=== PATIENT | female | born 1970 | race Caucasian/White ===

== ENCOUNTER 2025-06-21 19:41 | Emergency (ER) | payer BC, SELFPAY ==
--- OUTSIDE RECORDS SUMMARY | 2025-06-04 14:00 | XMS_ITS | Encounter Summary ---
Author Organization [employer] Address [address] [place] [address] Care Team Providers Care Pick Up Truck Driver Name Role Phone Harmony Bell PA-C Primary Care Provider [phone] Reason for Referral * Procedure/Equipment (Routine) - Incomplete Specialty Diagnoses / Procedures Referred By John scanlon Referred To Contact Diagnoses Encounter for screening mammogram for malignant neoplasm of breast Procedures MM Mammogram Screening Bilat W 3D Fady W CAD Harmony Bell PA-C [address] [place] [address] Phone: tel: fax: Referral ID Status Reason Start Date Expiration Date V isits Requested Visits Authorized [id number] Incomplete 06/04/2025 09/03/2026 1 1 Reason for Visit * Reason Comments Annual Exam Health Maintanence Declined Breast Exam Encounter Details Date Type Department Care Team (Late st Contact Info) Description 06/04/2025 2:00 PM CDT Office Visit [place] [address] [facility] [id number] [place] [phone] Harmony Bell PA-C [address] [place] [address] Annual physical exam (Primary Dx); Elevated coronary artery calcium score; Elevated LDL cholesterol level; Fear of public speaking (HRC); Perimenopause; Lopez; 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); S/P gastric bypass; Vitamin B12 deficiency (HRC); Vitamin D deficiency (HRC); Low ferritin; Encounter for screening mammogram for malignant neoplasm of breast; Anaphylactic reaction to wasp sting, accidental or unintentional, initial encounter; Vaginal dryness, menopausal; Adenomatous polyp of colon, unspecified part of colon; Motion sickness, initial encounter Social History Tobacco Use Types Packs/Day Years Used Date Smoking Tobacco: Never Smokeless Tobacco: Never Alcohol Use Standard Drinks/Week Comments Not Currently 0 (1 standard drink = 0.6 oz pur e alcohol) Limited PHQ-2 Answer Date Recorded PHQ-2 Score 0 06/04/2025 Hunger Vital Sign Answer Date Recorded Within the past 12 months, y ou worried that your food would run out before you got the money to buy more. Never true 06/04/20 25 Within the past 12 months, t he food you bought just didn't last and you didn't have money to get more. Never true 06/04/2025 PRAPARE - Transportation Answer Date Re corded In the past 12 months, has l ack of transportation kept you from medical appointments or from getting medications? No 06/2025 In the past 12 months, has l ack of transportation kept you from meetings, work, or from getting things needed for daily living? No 06/04/2025 Housing Stability Vital Sign Answer Cristi e Recorded In the last 12 months, was t here a time when you were not able to pay the mortgage or rent on time? No 06/04/2025 Number of Times Moved in the Last Year Not on fi le 06/04/2025 At any time in the past 12 m [facility], were you homeless or living in a fpc (including now)? No 06/04/2025 Financial Resource Strain Answer Date R ecorded Is it hard for you to pay fo r the very basics like food, housing, medical care or heating? No 09/28/2023 Food Insecurity Answer Date Recorded Does your food run out before you have the money to buy more? No 09/28/2023 Transportation Needs Answer Date Record ed Does a lack of transportatio n keep you from your medical appointments or from getting your medications? 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 Not on file Not on file Not on file documented as of this encounter Last Filed Vital Signs Vital Sign Reading Time Taken Comments Blood Pressure 108/67 06/04/2025 1:55 PM CDT Pulse 60 06/04/2025 1:55 PM CDT Temperature - - Respiratory Rate - - Oxygen Saturation - - Inhaled Oxygen Concentration - - Weight 72.6 kg (160 lb) 06/04/2025 1:55 PM CDT Height 175.3 cm (5' 9) 06/04/2025 1:55 PM CDT Body Mass Index 23.63 06/04/2025 1:55 PM CDT documented in this encounter Patient Instructions * Patient Instructions* Harmony Bell PA-C - 06/04/2025 2:00 PM CDT Here is plan below: 1) Make sure you continue getting regular exercise, aiming for 30+ min of cardio/strength/yoga at least 4-6 times per week. It is OK to break it up into 10min increments if that is easier for you. Doing a brief, intense HIIT (high intensity interval training) workout for 10min 3-4 times per week isgreat for your overall health. You can get good HIIT workouts on YouTube or apps like the [employer] caitlin. 2) The Vitamins I recommend are: One Pure Encapsulations ONE multivitamin (can get on [employer]) and 4,000IU of Vitamin D3/K2 in the AM and 2g fish oil ([employer] is a good brand) and 420mg (2 tablets) of Qunol brand magnesium glycinate (can get on [employer]) in the PM. 3) Make sure you are drinking 2-3 liters of water per day and eating a healthy diet, focusing on higher proteins/healthy fats and less carbs, small amounts of grass fed, organic (ideally) meats are good and eating a rainbow of fruits and vegetables daily, try to aim for 2 servings of fruit and 6 ofvegetables. If you do grains, whole grains (over whites) are better. Try to avoid fast foods and processed foods and artificial sweeteners and all diet and regular sodas and energy drinks. Green tea and black coffee are fine. Eat more healthy fats also like avocado, eggs, nuts, olive/avocado oil, ned and hemp seeds, pumpkin seeds, etc. Try to get at least 30g of protein with each meal. Eat protein first, then healthy fats and carbslast. Try to not snack after meals or after dinner (drink a lot of water throughout the day) and try to have at least 12 to 14 hours from the time you stop eating dinner until you eat breakfast againthe next morning. 4) Check out the [employer] for good recipe ideas, you can pick different diet types (Low Carb, Paleo, Vegetarian, Keto, etc) and they will give you recipes for that that are usually 30 min or so sogood for busy families. 5) Meditation can also be very helpful for your overall pam, better sleep and decreasing stress. You can YouTube meditations and try to work up to 20min twice daily in AM and PM if you can. Even 5-10min in AM and PM will have great benefits if you don't have 20min. Check out Apps like Calm, Headspace and Smiling Mind for good meditation apps. 6) It is really important to get 8 hours of good sleep per night, go to bed at the same time and get up at the same time each day ideally and make sure to not watch any screens at least 1 hour if not2 hours before bed and if you do use blue light blocking glasses. Having a good wind down regimen before bed is helpful (warm bath, cup of tea, reading a book, meditation, etc). 7) Start the Estrogen vaginal cream three times weekly like I showed you for a month and then go down to twice weekly. Call with any questions or concerns. Thanks, BEV [place]. documented in this encounter Progress Notes * Harmony Bell PA-C - 06/04/2025 2:00 PM CDTAddended by: HARMONY BELL on: 06/18/2025 09:31 AM Modules accepted: Orders * Harmony Bell PA-C - 06/04/2025 2:00 PM CDT Preventive Exam SUBJECTIVE: 55 y.o. y/o patient presents for a routine preventive physical exam. Additional Concerns: She is doing well overall. Will come back fasting for labs. [place] and forgot her Levothyroxine for 4 days so will do labs in a week or two. Struggles with low libido and vaginal dryness, discussed estradiol cream, benefits, how to use it correctly, etc. She would like to give it a try. Has the Mirena IUD in, doesn't feel like she has a lot of hot flashes but is perimenopausal currently. Discussed we can discuss HT in the future if she is interested. Would like refill of epipen for wasp stings. She was worried about statin side effects so stopped the Rosuvastatin 5mg, discussed her concerns and she is willing to do three times per week and see how that goes since she has an elevated Lipo a,Apo B and CAC score of 8. Needs refill of Propranolol 40mg prn public speaking. Would like scop patch for an upcoming cruise in Jul, discussed side effects, etc. Diet: Practices IF, good with protein, lots of water, no soda. Exercise: Pickle ball, some strength training mostly. Supplements: Vitamin D3, Vitamin B12, multivitamin, fish oil, magnesium, CoQ10, aged garlic extract, arterial protect. Lens Silverer History: : LMP: No LMP recorded. (Menstrual status: IUD). Pap hx: Does patient have history of abnormal pap smear? no. Mammogram: Up to date. Prev Med: Colonoscopy: Up to date. Dexa: N/A. OBJECTIVE: BP 108/67 (BP Location: Left Arm, BP Cuff Size: Regular) Pulse 60 Ht 5' 9 (1.753 m) Wt 160 lb (72.6 kg) BMI 23.63 kg/m?? General: Patient alert, in NAD. HEENT: PERRLA. EOMI. Bilateral TM's, external canals normal. Nose: normal mucosa, turbinates, without lesions. Oropharynx normal, normal teeth, gums, tongue, moist mucosa. Skin: Warm, dry, without lesions or rashes noted. Neck: Supple, without thyromegaly, palpable masses or lymphadenopathy. CV: RRR without murmurs, rubs or gallops. Resp: Clear to auscultation b/l without rhonchi, wheezes or rales. Abdomen: Soft, non-tender, without hepatosplenomegaly or palpable masses, b/s x 4. Breasts: Non tender b/l, without masses, nipple discharge, erythema, or skin changes. B/L implants. Pelvic: N/E. Lymphatic: No neck, supraclavicular or axillary lymphadenopathy. Upper extremities: No visible deformities. Lower extremities: No edema, varicosities, or deformity. DP/PT pulses 2/4+ b/l. MS: Normal cervical, thoracic and lumbar spine without visible deformities. Neuro: Normal gait, patellar reflexes 2/4+ b/l, biceps reflexes 2/4+ b/l. Psychiatric: Alert & oriented with normal affect and insight, does not appear depressed or anxious. ASSESSMENT: 1. Annual physical exam 2. Elevated coronary artery calcium score 3. Elevated LDL cholesterol level 4. Fear of public speaking (HRC) 5. Perimenopause 6. Lopez 7. 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 S/P gastric bypass 9. Vitamin B12 deficiency (HRC) 10. Vitamin D deficiency (HRC) 11. Low ferritin 12. Encounter for screening mammogram for malignant neoplasm of breast 13. Anaphylactic reaction to wasp sting, accidental or unintentional, initial encounter 14. Vaginal dryness, menopausal 15. Adenomatous polyp of colon, unspecified part of colon 16. Motion sickness, initial encounter PLAN: Alice was seen today for annual exam and health maintanence declined. Diagnoses and all orders for this visit: Annual physical exam Elevated coronary artery calcium score - rosuvastatin (CRESTOR) 5 MG tablet; 1 tab po at hs three times weekly. Elevated LDL cholesterol level - Apolipoprotein B; Future - Lipid Panel & Direct LDL (if Needed); Future - rosuvastatin (CRESTOR) 5 MG tablet; 1 tab po at hs three times weekly. Fear of public speaking (HRC) - propranolol (INDERAL) 40 MG tablet; 1 tab po 30min before public speaking. Perimenopause - buPROPion (WELLBUTRIN XL) 150 MG 24 hour release tablet; Take 1 Tablet (150 mg) by mouth every morning. 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) - TSH with Free T4 (if TSH Abnormal); Future S/P gastric bypass - Comprehensive Metabolic Panel; Future - Vitamin B12 Only; Future - Vitamin D 25-Hydroxy, Total; Future - Ferritin; Future - Complete Blood Count-No Diff; Future Vitamin B12 deficiency (HRC) - Vitamin B12 Only; Future Vitamin D deficiency (HRC) - Vitamin D 25-Hydroxy, Total; Future Low ferritin - Ferritin; Future - Complete Blood Count-No Diff; Future Encounter for screening mammogram for malignant neoplasm of breast - MM Mammogram Screening Bilat W 3D Fady W CAD; Future Anaphylactic reaction to wasp sting, accidental or unintentional, initial encounter - EPINEPHrine (EPIPEN) 0.3 MG/0.3ML injection; Inject 0.3 mL (0.3 mg) intramuscularly once for 1 dose. Vaginal dryness, menopausal - estradiol (ESTRACE) 0.1 MG/GM vaginal cream; Insert 1 g vaginally two times a week. Adenomatous polyp of colon, unspecified part of colon Motion sickness, initial encounter - scopolamine (TRANSDERM-SCOP) 1.0mg/3 days patch; Apply 1 Patch to skin every 3 days. Here is plan below: 1) Make sure you continue getting regular exercise, aiming for 30+ min of cardio/strength/yoga at least 4-6 times per week. It is OK to break it up into 10min increments if that is easier for you. Doing a brief, intense HIIT (high intensity interval training) workout for 10min 3-4 times per week isgreat for your overall health. You can get good HIIT workouts on YouTube or apps like the [employer]. 2) The Vitamins I recommend are: One Pure Encapsulations ONE multivitamin (can get on [employer]) and 4,000IU of Vitamin D3/K2 in the AM and 2g fish oil ([employer] is a good brand) and 420mg (2 tablets) of Qunol brand magnesium glycinate (can get on [employer]) in the PM. 3) Make sure you are drinking 2-3 liters of water per day and eating a healthy diet, focusing on higher proteins/healthy fats and less carbs, small amounts of grass fed, organic (ideally) meats are good and eating a rainbow of fruits and vegetables daily, try to aim for 2 servings of fruit and 6 ofvegetables. If you do grains, whole grains (over whites) are better. Try to avoid fast foods and processed foods and artificial sweeteners and all diet and regular sodas and energy drinks. Green tea and black coffee are fine. Eat more healthy fats also like avocado, eggs, nuts, olive/avocado oil, ned and hemp seeds, pumpkin seeds, etc. Try to get at least 30g of protein with each meal. Eat protein first, then healthy fats and carbslast. Try to not snack after meals or after dinner (drink a lot of water throughout the day) and try to have at least 12 to 14 hours from the time you stop eating dinner until you eat breakfast againthe next morning. 4) Check out the [employer] for good recipe ideas, you can pick different diet types (Low Carb, Paleo, Vegetarian, Keto, etc) and they will give you recipes for that that are usually 30 min or so sogood for busy families. 5) Meditation can also be very helpful for your overall pam, better sleep and decreasing stress. You can YouTube meditations and try to work up to 20min twice daily in AM and PM if you can. Even 5-10min in AM and PM will have great benefits if you don't have 20min. Check out Apps like Calm, Headspace and Smiling Mind for good meditation apps. 6) It is really important to get 8 hours of good sleep per night, go to bed at the same time and get up at the same time each day ideally and make sure to not watch any screens at least 1 hour if not2 hours before bed and if you do use blue light blocking glasses. Having a good wind down regimen before bed is helpful (warm bath, cup of tea, reading a book, meditation, etc). 7) Start the Estrogen vaginal cream three times weekly like I showed you for a month and then go down to twice weekly. Call with any questions or concerns. Thanks, Harmony Bell PAC. documented in this encounter Plan of Treatment Upcoming Encounters Date Type Department Care Team (Late st Contact Info) Description 07/01/2025 10:30 AM CDT Appointment [facility] [address] [place] [address] 07/02/2025 9:00 AM CDT Appointment [place] [address] Obstetrics/Gynecology [address] [place] [phone] [place] [address] [place] [address] Scheduled Orders Name Type Priority Associated Diagnoses Orde r Schedule MM Mammogram Screening Bilat W 3D Fady W CAD Imaging New Routine Encounter for screening mammogram for malignant neoplasm of breast Expected: 06/04/2025 (Approximate), Expires: 06/04/2026 documented as of this encounter Results * Complete Blood Count-No Diff (06/12/2025 2:17 PM CDT) WBC 5.2 3.5 - 10.5 x10(9)/L 06/12/2025 2:27 PM CDT [facility] RBC 4.01 3.90 - 5.03 x10(12)/L 06/12/2025 2:27 PM CDT [facility] Hemoglobin 12.0 12.0 - 15.5 g/dL 06/12/2025 2:27 PM CDT [facility] HCT 36.9 34.9 - 44.5 % 06/12/2025 2:27 PM CDT [facility] MCV 92.0 80.0 - 100.0 fL 06/12/2025 2:27 PM CDT [facility] MCH 29.9 27.6 - 33.3 pg 06/12/2025 2:27 PM CDT [facility] MCHC 32.5 31.5 - 35.2 g/dL 06/12/2025 2:27 PM CDT [facility] RDW 13.6 11.9 - 15.5 % 06/12/2025 2:27 PM CDT [facility] Platelets 272 150 - 450 x10(9)/L 06/12/2025 2:27 PM CDT [facility] Blood Venipuncture / Unknown 06/12/2025 2:17 PM CDT 06/12/2025 2:17 PM CDT Harmony Bell PA-C LAB_1 Final Result Performing Organization Address [facility] Co de Phone Number [facility] [address] [place] [phone] * Ferritin (06/12/2025 2:17 PM CDT) Ferritin 11 9 - 204 ng/mL 06/12/2025 8:06 PM CDT [facility] Blood Venipuncture / Unknown 06/12/2025 2:17 PM CDT 06/12/2025 2:17 PM CDT Harmony Bell PA-C LAB_1 Final Result Performing Organization Address [facility] Phone Number [facility] [address] [place] [address] * (ABNORMAL) Vitamin D 25-Hydroxy, Total (06/12/2025 2:17 PM CDT) Vitamin D, 25-OH, Total 87(H) 30 - 80 ng/mL 06/12/2025 7:55 PM CDT [facility] Blood Venipuncture / Unknown 06/12/2025 2:17 PM CDT 06/12/2025 2:17 PM CDT Narrative [facility] - 06/12/2025 7:55 PM CDT Expected values Deficiency: <20 ng/mL Insufficiency: 20-29 ng/mL Optimum: 30-80 ng/mL Possible toxicity: >80 ng/mL Harmony Bell PA-C LAB_1 Final Result Performing Organization Address [facility] Co de Phone Number [facility] [address] * (ABNORMAL) Vitamin B12 Only (06/12/2025 2:17 PM CDT) Pathologist [facility] Vitamin B12 >2,000(H) 213 - 816 pg/mL 06/12/2025 8:13 PM CDT [facility] Blood Venipuncture / Unknown 06/12/2025 2:17 PM CDT 06/12/2025 2:17 PM CDT Harmony Bell PA-C LAB_1 Final Result Performing Organization Address [facility] de Phone Number [facility] [address] [place] [address] * TSH with Free T4 (if TSH Abnormal) (06/12/2025 2:17 PM CDT) [facility] TSH, Reflex 2.70 0.30 - 4.50 uIU/mL 06/12/2025 8:05 PM CDT [facility] Blood Venipuncture / Unknown 06/12/2025 2:17 PM CDT 06/12/2025 2:17 PM CDT Harmony Bell PA-C LAB_1 Final Result Performing Organization Address [facility] Phone Number [facility] [address] [place] [address] * Comprehensive Metabolic Panel (06/12/2025 2:17 PM CDT) [facility] Sodium 138 136 - 145 mmol/L 06/12/2025 7:01 PM [facility] Potassium 4.0 3.5 - 5.1 mmol/L 06/12/2025 7:01 PM [facility] Chloride 103 98 - 109 mmol/L 06/12/2025 7:01 PM [facility] CO2 20 20 - 29 mmol/L 06/12/2025 7:01 PM [facility] Anion Gap 15 6 - 16 mmol/L 06/12/2025 7:01 PM [facility] Calcium 9.2 8.4 - 10.4 mg/dL 06/12/2025 7:01 PM [facility] BUN 14 7 - 26 mg/dL 06/12/2025 7:01 PM [facility] Creatinine 0.85 0.55 - 1.02 mg/dL 06/12/2025 7:01 PM [facility] Alkaline Phosphatase 60 40 - 150 U/L 06/12/2025 7:01 PM [facility] AST (SGOT) 31 16 - 46 U/L 06/12/2025 7:01 PM [facility] ALT (SGPT) 20 0 - 55 U/L 06/12/2025 7:01 PM [facility] Bilirubin, Total 1.1 0.2 - 1.2 mg/dL 06/12/2025 7:01 PM [facility] Protein, Total 7.5 6.4 - 8.3 g/dL 06/12/2025 7:01 PM [facility] Albumin 4.2 3.5 - 5.0 g/dL 06/12/2025 7:01 PM [facility] Glucose 85 70 - 100 mg/dL 06/12/2025 7:01 PM [facility] Comment:The given reference range is for the fasting state. Non-fasting reference range for glucose is 70 - 180 mg/dL. GFR, Estimated >60 >60 mL/min/1.7 3m2 06/12/2025 7:01 PM [facility] Hours Fasting 12.0 8 - 12 Hours 06/12/2025 7:01 PM [facility] Blood Venipuncture / Unknown 06/12/2025 2:17 PM CDT 06/12/2025 2:17 PM CDT us Harmony Bell PA-C LAB_1 Final Result [facility] [address] [place] [address], [facility] [address] [place] [address] * (ABNORMAL) Lipid Panel & Direct LDL (if Needed) (06/12/2025 2:17 PM CDT) [facility] Signature Cholesterol 232(H) 0 - 199 mg/dL 06/12/2025 7:01 PM [facility] Triglyceride 48 <=149 mg/dL 06/12/2025 7:01 PM [facility] HDL Cholesterol 106 >=40 mg/dL 7:01 PM [facility] LDL, Calculated 116 <130 mg/dL 7:01 PM [facility] Non HDL Chol, Calculated 126 <=159 mg/dL 06/12/2025 7:01 PM [facility] Cholesterol/HDL Ratio 2.2 <=5.0 06/12/2025 7:01 PM T [facility] Hours Fasting 12.0 8 - 12 Hours 06/12/2025 7:01 PM T [facility] Blood Venipuncture / Unknown 06/12/2025 2:17 PM CDT 06/12/2025 2:17 PM CDT Harmony Bell PA-C LAB_1 Final Result Performing Organization Address City/State/[facility] Co de Phone Number [facility] [address] [place] [address] [address] [place] [address] * Apolipoprotein B (06/12/2025 2:17 PM CDT) [facility] Apolipoprotein B-100 94 60 - 117 mg/dL 06/14/2025 8:51 PM CDT [employer] Comment: REFERENCE INTERVAL: Apolipoprotein B A desirable fasting serum Apo B concentration for the prevention of atherosclerotic cardiovascular disease in adults is less than 90 mg/dL. A fasting serum Apo B concentration of 130 mg/dL or greater corresponds to a LDL cholesterol concentration greater than 160 mg/dL and constitutes a risk enhancing factor for atherosclerotic cardiovascular disease in adults. Performed By: [employer] [address] [place] [id number] Advanced Practice Nurse Psychotherapist: Sincere Murray MD, PhD CLIA Number: [id number] Blood Venipuncture / Unknown 06/12/2025 2:17 PM CDT 06/12/2025 2:17 PM CDT Harmony Bell PA-C LAB_1 Final Result [facility] [address] [place], [place] [address] [place] [address] documented in this encounter Visit Diagnoses Diagnosis Annual physical exam- Primary Routine general medical examination at a health care facility Elevated coronary artery calcium score Elevated LDL cholesterol level Pure hypercholesterolemia Fear of public speaking (HRC) Social phobia Perimenopause Symptomatic menopausal or female climacteric states 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) S/P gastric bypass Bariatric surgery status Vitamin B12 deficiency (HRC) Other B-complex deficiencies Vitamin D deficiency (HRC) Unspecified vitamin D deficiency Low ferritin Other nonspecific findings on examination of blood Encounter for screening mammogram for malignant neoplasm of breast Other screening mammogram Anaphylactic reaction to wasp sting, accidental or unintentional, initial encounter Vaginal dryness, menopausal Symptomatic menopausal or female climacteric states Adenomatous polyp of colon, unspecified part of colon Motion sickness, initial encounter documented in this encounter Care Teams Pick Up Truck Driver Relationship Specialty Start Date End Date Harmony Bell PA-C [address] [place] [address] PCP - General 09/15/15 documented as of this encounter
--- OUTSIDE RECORDS SUMMARY | 2025-06-06 09:00 | XMS_ITS | Encounter Summary ---
Author Organization [employer] Address [address], [place] [address] Care Team Providers Care Customer Service Representative Teacher Name Role Phone Harmony Bell PA-C Primary Care Provider [phone] Reason for Visit * Reason Comments QUESTIONS, GENERAL Entered automaticall y based on patient selection in [employer]. Encounter Details Date Type Department Care Team (Late st Contact Info) Description 06/06/2025 9:00 AM CDT E-Visit [place] [address] Family Medicine [address] [place] [address] Harmony Bell PA-C [address] [place] [address] Chief Comp: QUESTIONS, GENERAL Social History Tobacco Use Types Packs/Day Years [...] any time in the past 12 m [facility], were you homeless or living in a senior living (including now)? No 06/04/2025 Financial Resource Strain [...] on file documented as of this encounter Plan of Treatment Upcoming Encounters Date Type Department Care Team (Late st Contact Info) Description 07/01/2025 10:30 AM CDT Appointment [facility] [address] [place] [address] 07/02/2025 9:00 AM CDT Appointment [place] [address] Obstetrics/Gynecology [address] [place] [phone] [place] [address] [place] [address] documented as of this encounter Visit Diagnoses Not on filedocumented in this encounter Care Teams Customer Service Representative Teacher Relationship Specialty Start Date End Date Harmony Bell PA-C [address] [place] [address] PCP - General 09/15/15 documented as of this encounter
--- OUTSIDE RECORDS SUMMARY | 2025-06-12 14:30 | XMS_ITS | Encounter Summary ---
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 No 06/04/2025 Financial Resource Strain [...] Info) Description 07/01/2025 10:30 AM CDT Appointment [facility] [address] [place] [address] 07/02/2025 9:00 AM CDT Appointment [facility] [address] Obstetrics/Gynecology [address] [place] [address] [place] [address] [place] [address] documented as of this encounter Procedures Procedure Name Priority Date/Time Associated Diagnosis Comments APOLIPOPROTEIN B Routine 06/12/2025 2:17 PM CDT Elevated LDL cholesterol level LIPID PANEL & DIRECT LDL (IF NEEDED) Routine 06/12/2025 2:17 PM CDT Elevated LDL cholesterol level VITAMIN D 25-HYDROXY, TOTAL Routine 06/12/2025 2:17 PM CDT S/P gastric bypass Vitamin D deficiency (HRC) COMPREHENSIVE METABOLIC PANEL Routine 06/12/2025 2:17 PM CDT S/P gastric bypass COMPLETE BLOOD COUNT-NO DIFF Routine 06/12/2025 2:17 PM CDT S/P gastric bypass Low ferritin FERRITIN Routine 06/12/2025 2:17 PM CDT S/P gastric bypass Low ferritin TSH, SENSITIVE (WITH REFLEX) Routine 06/12/2025 2:17 PM CDT 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) VITAMIN B12 ONLY Routine 06/12/2025 2:17 PM CDT S/P gastric bypass Vitamin B12 deficiency (HRC) documented in this encounter Results * Complete Blood Count-No Diff (06/12/2025 2:17 PM CDT) [facility] WBC 5.2 3.5 - 10.5 x10(9)/L 06/12/2025 2:27 PM CDT [facility] RBC 4.01 3.90 - 5.03 x10(12)/L 06/12/2025 2:27 PM CDT [facility] Hemoglobin 12.0 12.0 - 15.5 g/dL 06/12/2025 2:27 PM CDT [facility] HCT 36.9 34.9 - 44.5 % 06/12/2025 2:27 PM CDT [facility] MCV 92.0 80.0 - 100.0 fL 06/12/2025 2:27 PM CDT [facility] MCH 29.9 27.6 - 33.3 pg 06/12/2025 2:27 PM CDT [facility] MCHC 32.5 31.5 - 35.2 g/dL 06/12/2025 2:27 PM CDT [facility] RDW 13.6 11.9 - 15.5 % 06/12/2025 2:27 PM CDT [facility] Platelets 272 150 - 450 x10(9)/L 06/12/2025 2:27 PM CDT [facility] Blood Venipuncture / Unknown 06/12/2025 2:17 PM CDT 06/12/2025 2:17 PM CDT Harmony Bell PA-C LAB_1 Final Result Performing Organization Address [facility]/ZIP Co de Phone Number [facility] [address] [place] [address] * Ferritin (06/12/2025 2:17 PM CDT) Ferritin 11 9 - 204 ng/mL 06/12/2025 8:06 PM CDT [facility] Blood Venipuncture / Unknown 06/12/2025 2:17 PM CDT 06/12/2025 2:17 PM CDT Harmony Bell PA-C LAB_1 Final Result Performing Organization Address [facility] de Phone Number [facility] Delivered[address] [employer] * (ABNORMAL) Vitamin D 25-Hydroxy, Total (06/12/2025 2:17 PM CDT) Vitamin D, 25-OH, Total 87(H) 30 - 80 ng/mL 06/12/2025 7:55 PM CDT [facility] Blood Venipuncture / Unknown 06/12/2025 2:17 PM CDT 06/12/2025 2:17 PM CDT Narrative [facility] - 06/12/2025 7:55 PM CDT Expected values Deficiency: <20 ng/mL Insufficiency: 20-29 ng/mL Optimum: 30-80 ng/mL Possible toxicity: >80 ng/mL Harmony Bell PA-C LAB_1 Final Result Performing Organization Address City/[facility] Co de Phone Number [facility] Delivered[address] * (ABNORMAL) Vitamin B12 Only (06/12/2025 2:17 PM CDT) Pathologist [facility] Vitamin B12 >2,000(H) 213 - 816 pg/mL 06/12/2025 8:13 PM CDT [facility] Blood Venipuncture / Unknown 06/12/2025 2:17 PM CDT 06/12/2025 2:17 PM CDT Harmony Bell PA-C LAB_1 Final Result Performing Organization Address City/[facility]/ZIP Co de Phone Number [facility] [address] [place] [address] * TSH with Free T4 (if TSH Abnormal) (06/12/2025 2:17 PM CDT) Pathologist [facility] TSH, Reflex 2.70 0.30 - 4.50 uIU/mL 06/12/2025 8:05 PM CDT [facility] Blood Venipuncture / Unknown 06/12/2025 2:17 PM CDT 06/12/2025 2:17 PM CDT Harmony Bell PA-C LAB_1 Final Result Performing Organization Address City/[facility]/ZIP Co de Phone Number [facility] [address] [place] [address] * Comprehensive Metabolic Panel (06/12/2025 2:17 PM CDT) [facility] Sodium 138 136 - 145 mmol/L 06/12/2025 7:01 PM CDT [facility] Potassium 4.0 3.5 - 5.1 mmol/L 06/12/2025 7:01 PM CDT [facility] Chloride 103 98 - 109 mmol/L 06/12/2025 7:01 PM CDT [facility] CO2 20 20 - 29 mmol/L 06/12/2025 7:01 PM CDT [facility] Anion Gap 15 6 - 16 mmol/L 06/12/2025 7:01 PM CDT [facility] Calcium 9.2 8.4 - 10.4 mg/dL 06/12/2025 7:01 PM [facility] BUN 14 7 - 26 mg/dL 06/12/2025 7:01 PM [facility] Creatinine 0.85 0.55 - 1.02 mg/dL 06/12/2025 7:01 PM [facility] Alkaline Phosphatase 60 40 - 150 U/L 06/12/2025 7:01 PM [facility] AST (SGOT) 31 16 - 46 U/L 06/12/2025 7:01 PM [facility] ALT (SGPT) 20 0 - 55 U/L 06/12/2025 7:01 PM [facility] Bilirubin, Total 1.1 0.2 - 1.2 mg/dL 06/12/2025 7:01 PM [facility] Protein, Total 7.5 6.4 - 8.3 g/dL 06/12/2025 7:01 PM [facility] Albumin 4.2 3.5 - 5.0 g/dL 06/12/2025 7:01 PM [facility] Glucose 85 70 - 100 mg/dL 06/12/2025 7:01 PM [facility] Comment:The given reference range is for the fasting state. Non-fasting reference range for glucose is 70 - 180 mg/dL. GFR, Estimated >60 >60 mL/min/1.7 3m2 06/12/2025 7:01 PM [facility] Hours Fasting 12.0 8 - 12 Hours 06/12/2025 7:01 PM [facility] Blood Venipuncture / Unknown 06/12/2025 2:17 PM CDT 06/12/2025 2:17 PM CDT us Harmony Bell PA-C LAB_1 Final Result [facility] [address] [place] [address], [facility]3] LAB [address] [place] [address] * (ABNORMAL) Lipid Panel & Direct LDL (if Needed) (06/12/2025 2:17 PM CDT) [facility] Cholesterol 232(H) 0 - 199 mg/dL 06/12/2025 7:01 PM CDT [facility] Triglyceride 48 <=149 mg/dL 06/12/2025 7:01 PM T [facility] HDL Cholesterol 106 >=40 mg/dL 7:01 PM T [facility] LDL, Calculated 116 <130 mg/dL 7:01 PM T [facility] Non HDL Chol, Calculated 126 <=159 mg/dL 06/12/2025 7:01 PM T [facility] Cholesterol/HDL Ratio 2.2 <=5.0 06/12/2025 7:01 PM T [facility] Hours Fasting 12.0 8 - 12 Hours 06/12/2025 7:01 PM T [facility] Blood Venipuncture / Unknown 06/12/2025 2:17 PM CDT 06/12/2025 2:17 PM CDT Harmony Bell PA-C LAB_1 Final Result [facility] [address] [place] [address] [address] [place] [address] * Apolipoprotein B (06/12/2025 2:17 PM CDT) [facility] Apolipoprotein B-100 94 60 - 117 mg/dL 06/14/2025 8:51 PM CDT [facility] Comment: REFERENCE INTERVAL: Apolipoprotein B A desirable fasting serum Apo B concentration for the prevention of atherosclerotic cardiovascular disease in adults is less than 90 mg/dL. A fasting serum Apo B concentration of 130 mg/dL or greater corresponds to a LDL cholesterol concentration greater than 160 mg/dL and constitutes a risk enhancing factor for atherosclerotic cardiovascular disease in adults. 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
--- OUTSIDE RECORDS SUMMARY | 2025-06-21 11:00 | XMS_ITS | Encounter Summary ---
Author Organization [facility] Address [address], [place] [address] Care Team Providers Care Carpet Finishing Supervisor Name Role Phone Harmony Bell PA-C Primary Care Provider [phone] Reason for Referral * Consult/Transfer Care (Routine) - New Request Specialty Diagnoses / Procedures Referred By John scanlon Referred To Contact Diagnoses IUD (intrauterine device) in place Harmony Bell PA-C [address] [place] [address] Phone: tel: fax: Referral ID Status Reason Start Date Expiration Date V isits Requested Visits Authorized [id number] New Request 06/21/2025 09/20/2026 1 1 Scheduling Instructions Your clinician has recommended an appointment with [facility]. You can quickly schedule your appointment by signing in to your online account at [email or web address] or through the text message you may have received. You can also make an appointment by calling [phone]. We also suggest you call your health insurance provider about your benefits and coverage for this appointment. Question Answer Appointment Urgency? Non-Urgent Reason for Visit? Control Comments Removal, reinsertion of Mirena IUD. Reason for Visit * Reason Onset Date Comments Video Visit 06/21/2025 MENOPAUSE Encounter Details Date Type Department Care Team (Latest Contact Info) Description 06/21/2025 11:00 AM CDT Telemedicine [place] [address] Family Medicine [address] [place] [address] Harmony Bell PA-C [address] [place] [address] Perimenopausal symptoms (Primary Dx); Night sweats; Vaginal dryness, menopausal; IUD (intrauterine device) in place; Lopez; 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); Palpitations Social History Tobacco Use Types Packs/Day Years [...] any time in the past 12 m [facility], were you homeless or living in a group home (including now)? No 06/04/2025 Financial Resource Strain [...] on file documented as of this encounter Patient Instructions * Patient Instructions* Harmony Bell PA-C - 06/21/2025 11:00 AM CDT Here is plan below: 1) Call to schedule a removal/reinsertion of the Mirena IUD with Water Pump Assembler. 2) Start the Estradiol 0.025mg patch twice weekly like we discussed to help with the perimenopause symptoms. 3) Don't do any rigorous exercise until you get your iron infusion done and are feeling better. 4) In the meantime start 2 tsp of Floravital iron liquid twice daily and that can help. 5) Message me when you get your iron infusion and I'll put in the recheck labs for a month after that. 6) If you get another episode with chest pains, palpitations, etc again go to the ED for further evaluation. 7) Give me an update on how you are feeling on the Estradiol patch in 1-2 months. Call with any questions or concerns in the meantime. Thanks, Harmony Bell, PAC. documented in this encounter Progress Notes * Harmony Bell PA-C - 06/21/2025 11:00 AM CDT Subjective: Today's visit with Alice was conducted via telehealth (video) as it is the patient's preference andit is appropriate for the treatment being provided Alice scheduled a video visit to discuss hormones. She has the Mirena IUD in and wanted to discuss adding estradiol. She has a lot of fatigue, mood swings, low libido, night sweats, little bit of joint pain in her hands, mild brain fog at times. She also has low iron and will be getting infusion soon so that should help. She also had a couple episodes now this week where she felt really tired andhad her heart flutter and saw stars and had to sit down so she will take it easy until she can get the iron infusion. Discussed estrogen could help the palpitations also. The second episode she had achest pain to her back and her hand started tingling at pickle ball this AM and her hands are stilltingling and she still feels a dull ache in her chest. Discussed she could go to our UC to get an EKG now since she still feels a little off, she wanted to see how it goes today but if symptoms worsen will go in. We discussed trying Floravital iron to help in the meantime while she waits to get in for the iron infusion. Discussed not doing any pickle ball or rigorous exercise until she gets the iron infusion. Regarding the hormones she has had the Mirena IUD for 8 years, was put in to help menorrhagia, she is due to have it changed and so I referred her to OB and she will schedule a removal reinsertion since it works well for her and we need to have her uterus protected when starting estrogen. She has done some research also about estrogen so we discussed benefits, risks, side effects and she would like to try it, we'll start with the Estradiol 0.025mg patch twice weekly. She needs refill of the Levothyroxine also today and she never got the estrogen vaginal cream so I'll send that over again also for her to try. No other concerns today. Objective: There were no vitals taken for this visit. Pleasant, NAD, normal affect. Assessment/Plan: Perimenopausal symptoms - estradiol (VIVELLEDOT) 0.025 MG/24HR semiweekly patch; Apply 1 Patch to skin two times a week. Night sweats - estradiol (VIVELLEDOT) 0.025 MG/24HR semiweekly patch; Apply 1 Patch to skin two times a week. Vaginal dryness, menopausal - estradiol (VIVELLEDOT) 0.025 MG/24HR semiweekly patch; Apply 1 Patch to skin two times a week. - estradiol (ESTRACE) 0.1 MG/GM vaginal cream; Insert 1 g vaginally two times a week. IUD (intrauterine device) in place - Ob-Motion Picture Critic Consult - Adult/Peds Lopez - estradiol (VIVELLEDOT) 0.025 MG/24HR semiweekly patch; Apply 1 Patch to skin two times a week. 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) - levothyroxine (SYNTHROID) 175 MCG tablet; TAKE ONE TABLET BY MOUTH ON MON TO SAT AND 2 TABLETS ONSUNDAY Palpitations Here is plan below: 1) Call to schedule a removal/reinsertion of the Mirena IUD with Water Pump Assembler. 2) Start the Estradiol 0.025mg patch twice weekly like we discussed to help with the perimenopause symptoms. 3) Don't do any rigorous exercise until you get your iron infusion done and are feeling better. 4) In the meantime start 2 tsp of Floravital iron liquid twice daily and that can help. 5) Message me when you get your iron infusion and I'll put in the recheck labs for a month after that. 6) If you get another episode with chest pains, palpitations, etc again go to the ED for further evaluation. 7) Give me an update on how you are feeling on the Estradiol patch in 1-2 months. Call with any questions or concerns in the meantime. Thanks, BEV [place]. Harmony Bell PA-C documented in this encounter Plan of Treatment Upcoming Encounters Date Type Department Care Team (Late st Contact Info) Description 07/01/2025 10:30 AM CDT Appointment [facility] [address] [place] [address] 07/02/2025 9:00 AM CDT Appointment [place] [address] Obstetrics/Gynecology [address] [place] [address] [place] [address] [place] [address] Scheduled Referrals Name Type Priority Associated Diagnoses Orde r Schedule Ob-Motion Picture Critic Consult - Adult/Peds Referral Routine IUD (intrauterine device) in place Ordered: 06/21/2025 documented as of this encounter Visit Diagnoses Diagnosis Perimenopausal symptoms- Primary Symptomatic menopausal or female climacteric states Night sweats Generalized hyperhidrosis Vaginal dryness, menopausal Symptomatic menopausal or female climacteric states IUD (intrauterine device) in place Presence of intrauterine contraceptive device Lopez 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) Palpitations documented in this encounter Care Teams Carpet Finishing Supervisor Relationship Specialty Start Date End Date Harmony Bell PA-C [address] [place] [address] PCP - General 09/15/15 documented as of this encounter
--- OUTSIDE RECORDS SUMMARY | 2025-06-21 19:44 | XMS_ITS | Clinical Summary ---
Author Organization [facility] Technology Address [address], [place] [address] Care Team Providers Care Elevator Adjuster Name Role Phone Harmony Bell PA-C Primary Care Provider [phone] Source Comments You are receiving this document as you are listed as the primary care provider,follow-up provider, or the patient has been referred to you for consultation.This is in compliance with the Medicare andMedicaid EHR Incentive Program,which states Providers who transition their patient to another setting of careor provider of care or refers their patient to another provider of care shouldprovide summary care record for each transition of care or referral. Prolify Allergies Active Allergy Reactions Criticality Noted Date Comments Adhesive Rash 08/19/2020 Bacitracin 02/13/2003 PN: LW Reaction: Rash, Generalized Nsaids Other, see comments 10/22/2009 Pt had gastric bypass surgery, should not take NSAIDS. Wasp Venom Other, see comments 06/04/2025 Got stung by several wasps and her throat swelled and she got huge welts. Medications levonorgestrel (MIRENA) 20 MCG/24HR IUD 1 Each by Intrauterine route once. Active Campti-3 Fatty Acids (FISH OIL) 1000 MG capsule Take by mouth. Activ e MULTIPLE VITAMIN OR Active Continuous Blood Gluc [employer] Manager (FREESTYLE PIERRE 14 DAY READER) DEVIIndication s:Hypoglycemia (HRC),S/P gastric bypass Use with sensor. 1 Each 11 022 Active Continuous Blood Gluc [employer] Manager (DEXCOM G6 PASSENGER INTERLINE CLERK) DEVIIndication s:Hypoglycemia (HRC) Inject 1 Device subcutaneously as needed. For use with continuous glucose monitoring system. 1 Each 022 Active Continuous Blood Gluc Transmit (DEXCOM G6 TRANSMITTER) MISCIndication s:Hypoglycemia (HRC) Inject 1 Each subcutaneously as needed. Use as directed for continuous glucose monitoring. Change transmitter every 3 months. 1 Each 4 022 Active Continuous Blood Gluc Sensor (FREESTYLE PIERRE 2 SENSOR) MISCIndication s:Hypoglycemia (HRC) Apply one sensor to back of arm q2 weeks. 2 Each 6 023 Active rosuvastatin (CRESTOR) 5 MG tabletIndicati ons:Elevated coronary artery calcium score,Elevated LDL cholesterol level 1 tab po at hs three times weekly. 36 Tablet 3 025 Active propranolol (INDERAL) 40 MG tabletIndicati ons:Fear of public speaking (HRC) 1 tab po 30min before public speaking. 30 Tablet 3 025 Active buPROPion (WELLBUTRIN XL) 150 MG 24 hour release tabletIndicati ons:Perimenopa use Take 1 Tablet (150 mg) by mouth every morning. 90 Tablet 3 025 Active scopolamine (TRANSDERM-SCO P) 1.0mg/3 days patchIndicatio ns:Motion sickness, initial encounter Apply 1 Patch to skin every 3 days. 4 Each 025 Active estradiol (VIVELLEDOT) 0.025 MG/24HR semiweekly patchIndicatio ns:Night sweats,Vaginal dryness, menopausal,Per imenopausal symptoms,Lopez Apply 1 Patch to skin two times a week. 24 Each 025 Active estradiol (ESTRACE) 0.1 MG/GM vaginal creamIndicatio ns:Vaginal dryness, menopausal Insert 1 g vaginally two times a week. 42.5 g 3 025 Active levothyroxine (SYNTHROID) 175 MCG tabletIndicati ons:Hypothyroi dism due to John's thyroiditis (HRC) TAKE ONE TABLET BY MOUTH ON TUE TO TUE AND 2 TABLETS ON TUESDAY 102 Tablet 3 025 Active EPINEPHrine (EPIPEN) 0.3 MG/0.3ML injection Inject 0.3 mg intramuscularly. 014 2024 Discontinued(* Med change OR same med OR reorder, new dose/direction s) propranolol (INDERAL) 40 MG tabletIndicati ons:Fear of public speaking ([facility]) 1 tab po 30min before public speaking. 30 Tablet 3 022 2024 Discontinued(* Med change OR same med OR reorder, new dose/direction s) tirzepatide-we ight management (ZEPBOUND) 15 MG/0.5ML pen injectionIndic ations:S/P gastric bypass,Overwei ght (BMI 25.0-29.9) ([facility]) Inject 0.5 mL (15 mg) subcutaneously once every week. Do not start before August 06, 2024. 2 mL 11 024 2024 Discontinued rosuvastatin (CRESTOR) 5 MG tabletIndicati ons:Elevated coronary artery calcium score,Elevated LDL cholesterol level TAKE ONE TABLET BY MOUTH NIGHTLY AT BEDTIME 90 Tablet 025 2024 Discontinued(* Med change OR same med OR reorder, new dose/direction s) buPROPion (WELLBUTRIN XL) 150 MG 24 hour release tabletIndicati ons:Perimenopa use TAKE ONE TABLET BY MOUTH IN THE MORNING 60 Tablet 025 2024 Discontinued(* Med change OR same med OR reorder, new dose/direction s) levothyroxine (SYNTHROID) 175 MCG tabletIndicati ons:Hypothyroi dism due to John's thyroiditis ([facility]) TAKE ONE TABLET BY MOUTH ON Tue AND 2 TABLETS ON TUESDAY 60 Tablet 025 2024 Discontinued(* Med change OR same med OR reorder, new dose/direction s) EPINEPHrine (EPIPEN) 0.3 MG/0.3ML injectionIndic ations:Anaphyl actic reaction to wasp sting, accidental or unintentional, initial encounter Inject 0.3 mL (0.3 mg) intramuscularly once for 1 dose. 2 Each 1 025 2024 estradiol (ESTRACE) 0.1 MG/GM vaginal creamIndicatio ns:Vaginal dryness, menopausal Insert 1 g vaginally two times a week. 42.5 g 3 025 2024 Discontinued(* Med change OR same med OR reorder, new dose/direction s) Active Problems Problem Noted Date Diagnosed Date Perimenopausal symptoms 06/21/2025 Low ferritin 06/18/2025 Vaginal dryness, menopausal 06/04/2025 Anaphylactic reaction to wasp sting 06/04/2025 Adenomatous polyp of colon 04/13/2021 Fear of public speaking 02/04/2017 Primary osteoarthritis of both knees 12/13/2016 S/P gastric bypass 02/02/2016 PMS (premenstrual syndrome) 02/02/2016 History of dysplastic nevus 11/16/2012 Hypothyroidism 05/04/2003 Overview (07/20/2017): Hypothyroidism Acquired Resolved Problems Problem Noted Date Diagnosed Date Resolved Date Abnormal uterine bleeding (AUB) 02/07/2017 01/28/2021 Chondromalacia 12/13/2016 06/15/2018 Knee pain 12/13/2016 06/15/2018 Obesity 05/04/2003 02/02/2016 Encounters Date Type Department Care Team Description 06/21/2025 11:00 AM CDT Telemedicine [place] [address] [address] [place] [phone] Harmony Bell PA-C Perimenopausal symptoms (Primary Dx); Night sweats; Vaginal dryness, menopausal; IUD (intrauterine device) in place; Lopez; 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); Palpitations 06/19/2025 Telephone [place] [address] [address] [place] [phone] Harmony Bell PA-C Orders Needed 06/14/2025 Results Follow-Up [address] Medicine [address] [place] [phone] Harmony Bell PA-C 06/12/2025 2:30 PM CDT Lab Visit [address] [phone] Elevated LDL cholesterol level; S/P gastric bypass; 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); Vitamin B12 deficiency (HRC); Vitamin D deficiency (HRC); Low ferritin 06/06/2025 9:00 AM CDT E-Visit [address] [phone] Harmony Bell PA-C Chief Comp: QUESTIONS, GENERAL 06/04/2025 2:00 PM CDT Office Visit [address] [phone] Harmony Bell PA-C Annual physical exam (Primary Dx); Elevated coronary [...] part of colon; Motion sickness, initial encounter 04/25/[address] [phone] Harmony Bell PA-C Refill (buPROPion (WELLBUTRIN XL) 150 MG 24 hour release tablet [Pharmacy Med Name: buPROPion HCl ER (XL) Oral Tablet Extended Release 24 Hour 150 MG]; levothyroxine (SYNTHROID) 175 MCG tablet [Pharmacy Med Name: Levothyroxine Sodium Oral Tablet 175 MCG]) from Last 3 Months Immunizations Immunization Administration Dates Next Due Flu Vac (3+ yrs) 08/14/2013,08/09/2012 Fluzone Qiv Multidose Vial 0.25 (6-35 Mos) 09/07,09/02/2015 HepA Adult (19+ yrs) 01/17/2013,10/30/2007 Influenza (Flucelvax), Preserv Free QIV 09/28/20 23 Influenza IIV4 (Quadrivalent) 0.5mL (71510) 09/29,10/12/2016 Influenza LAIV (Nasal, 2-49 yrs) 09/03/2014 Pfizer COVID-19 12+ 09/28/2023 Pfizer Monovalent 12+ 06/03/2022 Pfizer Monovalent 12+ Purple Top 10/30/2021,05/0 02/2021,03/10/2021 TDAP (BOOSTRIX) 01/17/2013 Td 01/07/2000 Tdap 06/03/2022 Zoster RZV (Shingrix) 09/28/2023,06/03/2022 Family History Medical History Relation Name Comments Cancer Father Dada Esophageal, age 60. Other Father Dada Amloydosis Mother Adopted Kidney/Bladder Disease Mother Adopted No Known Family HIstory Problems Mother Adopted No Known Problems Daughter Leonie Diabetes Paternal Grandfather Ures Myocardial Infarction Paternal Grandfather Ures In his 60s Diabetes Paternal Grandmother Margarite Heart Disease Paternal Grandmother Margarite CHF Diabetes Paternal Uncle Arun Cancer, Melanoma Sister Vickie Other Sister Vickie Did have pre-di abetes, had gastric bypass and is good now. No Known Problems Son Ildefonso Cancer, Breast Negative Family History Cancer, Ovary Negative Family History Relation Name Status Comments Father Dada Mother Adopted Alive Daughter Leonie Alive Maternal Grandfather Unknown Alive Maternal Grandmother Unknown Alive Paternal Grandfather Ures Paternal Grandmother Margarite Paternal Uncle Arun Alive Sister Vickie Alive Son Ildefonso Alive Social History Tobacco Use Types Packs/Day Years [...] any time in the past 12 [facility], were you homeless or living in a chcf (including now)? No 06/04/2025 Financial Resource Strain [...] file Not on file Not on file Last Filed Vital Signs Vital Sign Reading Time Taken Comments Blood Pressure 108/67 06/04/2025 1:55 PM CDT Pulse 60 06/04/2025 1:55 PM CDT Temperature 36.6 C (97.8 F) 07/11/2023 2:12 PM CDT Respiratory Rate 16 07/11/2023 2:12 PM CDT Oxygen Saturation 98% 07/11/2023 2:12 PM CDT Inhaled Oxygen Concentration - - Weight 72.6 kg (160 lb) 06/04/2025 1:55 PM CDT Height 175.3 cm (5' 9) 06/04/2025 1:55 PM CDT Body Mass Index 23.63 06/04/2025 1:55 PM CDT Plan of Treatment Upcoming Encounters Date Type Department Care Team (Late st Contact Info) Description 07/01/2025 10:30 AM CDT Appointment [facility] [address] [place] [address] 07/02/2025 9:00 AM CDT Appointment [facility] Obstetrics/Gynecology [address] [place] [phone] [place] [address] [place] [address] Health Maintenance Due Date Last Done Comments HepB Vaccine (1) 1991 Pneumococcal Vaccine 50+ Yrs (1 of 1 - PCV) 2022 COVID-19 Vaccine ( - season) 2024 09/28/2023, 06/03/2022, 10/30/2021, Additional history exists Influenza Vaccine (#1) 2025 , 10/23/2019, 10/12/2016, Additional history exists Mammogram 10/22/2025 10/22/2024, 09/29, 07/27/2022, Additional history exists Colonoscopy 03/23/2026 03/23/2021 Adult Preventive Visit 06/04/2026 5, 09/28/2023, 06/03/2022, Additional history exists Cervical Cancer Screening 09/28/20282022, 09/28/2023, 10/23/2019, Additional history exists Cholesterol 06/12/2030 06/12/2025, 10/29, 12/22/2023, Additional history exists DTaP/Tdap/Td Vaccine (3 - Tdap) 06/03/2032 06/03/2022, 01/17/2013, 01/07/2000 HepA Vaccine Completed 01/17/2013, 10/30/2007 HIV Screening (Preventive Services) Completed 02/04/2017 Hep C Screening (Preventive Services) Completed 06/03/2022 Zoster/Shingles Vaccine Completed 09/28/2023, 06/03 Hib Vaccine Aged Out No longer eligi ble based on patient's age to complete this topic IPV (Polio) Vaccine Aged Out No longe r eligible based on patient's age to complete this topic MCV4 Vaccine Aged Out No longer eligi ble based on patient's age to complete this topic Meningococcal B Vaccine Aged Out No l onger eligible based on patient's age to complete this topic Procedures Procedure Name Priority Date/Time Associated Diagnosis Comments COMPLETE BLOOD COUNT-NO DIFF Routine 06/12/2025 2:17 PM CDT S/P gastric bypass Low ferritin FERRITIN Routine 06/12/2025 2:17 PM CDT S/P gastric bypass Low ferritin VITAMIN D 25-HYDROXY, TOTAL Routine 06/12/2025 2:17 PM CDT S/P gastric bypass Vitamin D deficiency (HRC) VITAMIN B12 ONLY Routine 06/12/2025 2:17 PM CDT S/P gastric bypass Vitamin B12 deficiency (HRC) TSH, SENSITIVE (WITH REFLEX) Routine 06/12/2025 2:17 PM CDT 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) COMPREHENSIVE METABOLIC PANEL Routine 06/12/2025 2:17 PM CDT S/P gastric bypass LIPID PANEL & DIRECT LDL (IF NEEDED) Routine 06/12/2025 2:17 PM CDT Elevated LDL cholesterol level APOLIPOPROTEIN B Routine 06/12/2025 2:17 PM CDT Elevated LDL cholesterol level MM MAMMOGRAM SCREENING BILAT W IMPLANTS W 3D FADY W CAD Routine 10/22/2024 11:16 AM DELICATESSEN DEPARTMENT MANAGER CYTOLOGY (PAP) Routine 09/28/2023 2:43 PM CDT Screening for malignant neoplasm of cervix HEPATITIS C ANTIBODY, WITH REFLEX (ANTI-HCV) Routine 06/03/2022 9:03 AM CDT Need for hepatitis C screening test ENDOSCOPY, COLON, SCREENING/DIAGNOSTIC Routine 03/23/2021 2:18 PM CDT Screening for colon cancer HIV-1 P24 AND HIV-1/HIV-2 ANTIBODIES Routine 02/04/2017 8:58 AM DELICATESSEN DEPARTMENT MANAGER Screening for HIV (human immunodeficiency virus) from Last 3 Months or Most Recently Relevant to Health Maintenance Results * Apolipoprotein B (06/12/2025 2:17 PM CDT) Apolipoprotein B-100 94 60 - 117 mg/dL 06/14/2025 8:51 PM CDT [facility] Comment: REFERENCE INTERVAL: Apolipoprotein B A desirable fasting serum Apo B concentration for the prevention of atherosclerotic cardiovascular disease in adults is less than 90 mg/dL. A fasting serum Apo B concentration of 130 mg/dL or greater corresponds to a LDL cholesterol concentration greater than 160 mg/dL and constitutes a risk enhancing factor for atherosclerotic cardiovascular disease in adults. Performed By: [facility] [address] [place] [address] Grievance And Appeals Coordinator: Sincere Murray MD, PhD CLIA Number: [id number] Blood Venipuncture / Unknown 06/12/2025 2:17 PM CDT 06/12/2025 2:17 PM CDT Harmony Bell PA-C LAB_1 Final Result [facility] [address] [place], [place] [address] [place] [address] * (ABNORMAL) Lipid Panel & Direct LDL (if Needed) (06/12/2025 2:17 PM CDT) Cholesterol 232(H) 0 - 199 mg/dL 06/12/2025 7:01 PM [facility] Triglyceride 48 <=149 mg/dL 06/12/2025 7:01 PM [facility] HDL Cholesterol 106 >=40 mg/dL 7:01 PM [facility] LDL, Calculated 116 <130 mg/dL 7:01 PM [facility] Non HDL Chol, Calculated 126 <=159 mg/dL 06/12/2025 7:01 PM [facility] Cholesterol/HDL Ratio 2.2 <=5.0 06/12/2025 7:01 PM [facility] Hours Fasting 12.0 8 - 12 Hours 06/12/2025 7:01 PM [facility] Blood Venipuncture / Unknown 06/12/2025 2:17 PM CDT 06/12/2025 2:17 PM CDT Harmony Bell PA-C LAB_1 Final Result Performing Organization Address [facility]/ZIP Co de Phone Number [facility] [address] [place] [address], [facility] [address] [place] [address] * (ABNORMAL) Vitamin D 25-Hydroxy, Total (06/12/2025 2:17 PM CDT) Pathologist [facility] [place] Vitamin D, 25-OH, Total 87(H) 30 - 80 ng/mL 06/12/2025 7:55 PM CDT [facility] Blood Venipuncture / Unknown 06/12/2025 2:17 PM CDT 06/12/2025 2:17 PM CDT Narrative [facility] - 06/12/2025 7:55 PM CDT Expected values Deficiency: <20 ng/mL Insufficiency: 20-29 ng/mL Optimum: 30-80 ng/mL Possible toxicity: >80 ng/mL Harmony Bell PA-C LAB_1 Final Result Performing Organization Address City/[facility]/ZIP Co de Phone Number [facility] [address] [place], [place] [address] * Comprehensive Metabolic Panel (06/12/2025 2:17 PM CDT) Pathologist [facility] [place] Sodium 138 136 - 145 mmol/L 06/12/2025 7:01 PM T [facility] Potassium 4.0 3.5 - 5.1 mmol/L 06/12/2025 7:01 PM T [facility] Chloride 103 98 - 109 mmol/L 06/12/2025 7:01 PM T [facility] CO2 20 20 - 29 mmol/L 06/12/2025 7:01 PM T [facility] Anion Gap 15 6 - 16 mmol/L 06/12/2025 7:01 PM T [facility] Calcium 9.2 8.4 - 10.4 mg/dL 06/12/2025 7:01 PM [facility] BUN 14 7 - 26 mg/dL 06/12/2025 7:01 PM [facility] Creatinine 0.85 0.55 - 1.02 mg/dL 06/12/2025 7:01 PM [facility] Alkaline Phosphatase 60 40 - 150 U/L 06/12/2025 7:01 PM [facility] AST (SGOT) 31 16 - 46 U/L 06/12/2025 7:01 PM [facility] ALT (SGPT) 20 0 - 55 U/L 06/12/2025 7:01 PM [facility] Bilirubin, Total 1.1 0.2 - 1.2 mg/dL 06/12/2025 7:01 PM [facility] Protein, Total 7.5 6.4 - 8.3 g/dL 06/12/2025 7:01 PM [facility] Albumin 4.2 3.5 - 5.0 g/dL 06/12/2025 7:01 PM [facility] Glucose 85 70 - 100 mg/dL 06/12/2025 7:01 PM [facility] Comment:The given reference range is for the fasting state. Non-fasting reference range for glucose is 70 - 180 mg/dL. GFR, Estimated >60 >60 mL/min/1.7 3m2 06/12/2025 7:01 PM [facility] Hours Fasting 12.0 8 - 12 Hours 06/12/2025 7:01 PM [facility] Blood Venipuncture / Unknown 06/12/2025 2:17 PM CDT 06/12/2025 2:17 PM CDT us Harmony Bell PA-C LAB_1 Final Result [facility] [address] [place] [address], [facility] [address] [place] [address] * Complete Blood Count-No Diff (06/12/2025 2:17 PM CDT) WBC 5.2 3.5 - 10.5 x10(9)/L 06/12/2025 2:27 PM CDT [facility] RBC 4.01 3.90 - 5.03 x10(12)/L 06/12/2025 2:27 PM CDT [facility] Hemoglobin 12.0 12.0 - 15.5 g/dL 06/12/2025 2:27 PM CDT [facility] HCT 36.9 34.9 - 44.5 % 06/12/2025 2:27 PM CDT [facility] MCV 92.0 80.0 - 100.0 fL 06/12/2025 2:27 PM CDT [facility] MCH 29.9 27.6 - 33.3 pg 06/12/2025 2:27 PM CDT [facility] MCHC 32.5 31.5 - 35.2 g/dL 06/12/2025 2:27 PM CDT [facility] RDW 13.6 11.9 - 15.5 % 06/12/2025 2:27 PM CDT [facility] Platelets 272 150 - 450 x10(9)/L 06/12/2025 2:27 PM CDT [facility] Blood Venipuncture / Unknown 06/12/2025 2:17 PM CDT 06/12/2025 2:17 PM CDT Harmony Bell PA-C LAB_1 Final Result Performing Organization Address City/[facility]/ZIP Co de Phone Number [facility] [address] [place] [address] * Ferritin (06/12/2025 2:17 PM CDT) [facility] Ferritin 11 9 - 204 ng/mL 06/12/2025 8:06 PM CDT [facility] Blood Venipuncture / Unknown 06/12/2025 2:17 PM CDT 06/12/2025 2:17 PM CDT Harmony Bell PA-C LAB_1 Final Result [facility] [address] [place] [address] * TSH with Free T4 (if TSH Abnormal) (06/12/2025 2:17 PM CDT) TSH, Reflex 2.70 0.30 - 4.50 uIU/mL 06/12/2025 8:05 PM CDT [facility] Blood Venipuncture / Unknown 06/12/2025 2:17 PM CDT 06/12/2025 2:17 PM CDT Harmony Bell PA-C LAB_1 Final Result Performing Organization Address City/[facility]/ZIP Co de Phone Number [facility] [address] [place] [address] * (ABNORMAL) Vitamin B12 Only (06/12/2025 2:17 PM CDT) Vitamin B12 >2,000(H) 213 - 816 pg/mL 06/12/2025 8:13 PM CDT [facility] Blood Venipuncture / Unknown 06/12/2025 2:17 PM CDT 06/12/2025 2:17 PM CDT Harmony Bell PA-C LAB_1 Final Result Performing Organization Address City/[facility]/ZIP Co de Phone Number [facility] [address] [place] [address] * MM Mammogram Screening Bilat W Implants W 3D Fady W CAD (10/22/2024 11:16 AM DELICATESSEN DEPARTMENT MANAGER) Anatomical Region Laterality Modality Breast Bilateral Mammography Impressions 10/23/2024 7:59 AM DELICATESSEN DEPARTMENT MANAGER : ACR BI-RADS Category 2: Benign RECOMMENDATION: Follow Up Imaging in 12 months - Bilateral The results and recommendations of this examination will be communicated to the patient. Narrative 10/23/2024 7:59 AM DELICATESSEN DEPARTMENT MANAGER MM MAMMOGRAM SCREENING BILAT W IMPLANTS W 3D FADY W CAD performed on 10/22/24 FDA Accredited Facility: [place] [place] [address] Compared to: 10/18/2023 MM Mammogram Screening Bilat W Implants W 3D Fady W CAD, 07/27/2022 MM Mammogram Screening Bilat W Implants W 3D Fady W CAD, and 05/04/2021 MM Mammogram Screening Bilat W Implants W 3D Fady W CAD FINDINGS: Bilateral screening mammogram was performed with the assistance of Computer-Aided Detection and breast tomosynthesis. There are scattered areas of fibroglandular density. There are findings of breast augmentation. There is no radiographic evidence of malignancy. Harmony Bell PA-C RAD WILLIAM Final Result * PAP Test (09/28/2023 2:43 PM CDT) Case Report Pap Case: [id number] Authorizing Provider: Harmony Bell PA-C Collected: 09/28/2023 1443 Ordering Location: [address] Received: 09/28/2023 1506 Medicine First Screen: Brigida Rodriguez CT (ASCP) Specimen: Pap Test, Routine, Cervix/Endocervix 10/16/2023 2:04 PM DELICATESSEN DEPARTMENT MANAGER [facility] Pap Specimen Adequacy Satisfactory for evaluation, endocervical/santacruz sformation zone component present. 10/16/2023 2:04 PM DELICATESSEN DEPARTMENT MANAGER [facility] Pap Interpretation (NILM) Negative for intraepithelial lesion or malignancy. 10/16/2023 2:04 PM DELICATESSEN DEPARTMENT MANAGER [facility] at 1404 DELICATESSEN DEPARTMENT MANAGER Pap Disclaimer The Pap test is a screening test to aid in the detection of cervical and vaginal cancers and their precursor lesions. It is not a diagnostic procedure and should not be used as the sole means of detecting malignancy. Both false-positive and false-negative results may occur. 10/16/2023 2:04 PM DELICATESSEN DEPARTMENT MANAGER [facility] Gross Description The specimen is received in Sure[employer] fixative and properly labeled. 1 Pap-stained SurePath slide is prepared. 10/16/2023 2:04 PM DELICATESSEN DEPARTMENT MANAGER [facility] Embedded Images 2:04 PM DELICATESSEN DEPARTMENT MANAGER [facility] Other Specimen Type ENTIRE ENDOCERVIX / Unknown 09/28/2023 2:43 PM CDT 09/28/2023 3:06 PM CDT Comment:LMP: No LMP recorded . (Menstrual status: IUD). Harmony Bell PA-C LAB PATHOLOGY Final Result Performing Organization Address [facility] Co de Phone Number [facility] [address] * Hepatitis C Virus Miguelina with Reflex (06/03/2022 9:03 AM CDT) Hepatitis C Antibody Negative (Non Reactive) Negative (Non Reactive) 06/03/2022 4:34 PM CDT [facility] Comment:Antibodies to HCV no t detected. Does not exclude the possiblity of exposure to HCV. Blood Venipuncture / Unknown 06/03/2022 9:03 AM CDT 06/03/2022 9:03 AM CDT Harmony Bell PA-C LAB_1 Final Result Performing Organization Address [facility] de Phone Number [facility] [address] * Endoscopy, Colon, Screening/Diagnostic (03/23/2021 2:18 PM CDT) Anatomical Region Laterality Modality Other 03/23/2021 2:18 PM CDT Narrative 03/23/2021 2:18 PM CDT Patient Name: Alice Quintero Procedure Date: 03/23/2021 2:18 PM Date of : 1970 Admit Type: Outpatient Age: 50 Note Status: Finalized Attending MD: Yuri Finley , Procedure: Colonoscopy Indications: Screening for colorectal malignant neoplasm Providers: Yuri Finley, Bettye Clark RN Patient Profile: This is a 50 year old woman who reports that she had a normal colonoscopy 15 years ago as part of a perianal fistula evaluation. Nothing was found. She presents today for a screening colonoscopy, and she denies bowel complaints. There is no family history of colon polyps or colon cancer. Referring MD: Harmony Bell Medicines: Midazolam 2 mg IV, Fentanyl 100 micrograms IV Complications: No immediate complications. Procedure: After I obtained informed consent, the scope was passed under direct vision. Throughout the procedure, the patient's blood pressure, pulse, and oxygen saturations were monitored continuously. The [id number] was introduced through the anus and advanced to 10 cm into the ileum. The colonoscopy was performed without difficulty. The patient tolerated the procedure well. The quality of the bowel preparation was good. Findings: The perianal and digital rectal examinations were normal. The terminal ileum appeared normal. A 7 mm polyp was found in the hepatic flexure. The polyp was sessile. The polyp was removed with a hot snare. Resection and retrieval were complete. To prevent bleeding after the polypectomy, a hemostatic clip was successfully placed. A 5 mm polyp was found in the sigmoid colon. The polyp was sessile. The polyp was removed with a hot snare. Resection and retrieval were complete. Three sessile polyps were found in the rectum. The polyps were 2 mm in size. These polyps were removed with a cold biopsy forceps. Resection and retrieval were complete. A small internal hemorrhoid was noted. The exam was otherwise without abnormality on direct and retroflexion views. Moderate Sedation: Moderate (conscious) sedation was administered by the endoscopy nurse and supervised by the endoscopist. The following parameters were monitored: oxygen saturation, heart rate, blood pressure, and response to care. Total physician intraservice time was 44 minutes. Impression: - Five polyps (removed, with clip placement at the hepatic flexure polyp site) and a small internal hemorrhoid, otherwise normal coon and terminal ileum. Recommendation: - Await pathology results. - Repeat colonoscopy for surveillance -- the timing of which will be based on the pathology results. - Return to see KAILA Covington as needed. Procedure Code(s): --- Professional --- 36774, Colonoscopy, flexible; with removal of tumor(s), polyp(s), or other lesion(s) by snare technique 76246, 59, Colonoscopy, flexible; with biopsy, single or multiple 27792, Moderate sedation; each additional 15 minutes intraservice time 90792, Moderate sedation; each additional 15 minutes intraservice time G0500, Moderate sedation services provided by the same physician or other qualified health child day care provider performing a gastrointestinal endoscopic service that sedation supports, requiring the presence of an independent trained observer to assist in the monitoring of the patient's level of consciousness and physiological status; initial 15 minutes of intra-service time; patient age 5 years or older (additional time may be reported with 50387, as appropriate) Diagnosis Code(s): --- Professional --- Z12.11, Encounter for screening for malignant neoplasm of colon K63.5, Polyp of colon K62.1, Rectal polyp CPT copyright 2019 [employer]. All rights reserved. The codes documented in this report are preliminary and upon lumber checker review may be revised to meet current compliance requirements. Yuri Finley, 03/23/2021 3:24:44 PM Number of Addenda: 0 Note Initiated On: 03/23/2021 2:18 PM Endoscopy Report Procedure Note Rubi Ruiz - 03/23/2021 Patient Name: Alice Quintero Procedure Date: 03/23/2021 2:18 PM Date of : 1970 Admit Type: Outpatient Age: 50 Note Status: Finalized Attending MD: Yuir Finley , Procedure: Colonoscopy Indications: Screening for colorectal malignant neoplasm Providers: Yuri Finley, Bettye Clark RN Patient Profile: This is a 50 year old woman who reports that she had a normal colonoscopy 15 years ago as part of a perianal fistula evaluation. Nothing was found. She presents today for a screening colonoscopy, and she denies bowel complaints. There is no family history of colon polyps or colon cancer. Referring MD: Harmony Bell Medicines: Midazolam 2 mg IV, Fentanyl 100 micrograms IV Complications: No immediate complications. Procedure: After I obtained informed consent, the scope was passed under direct vision. Throughout the procedure, the patient's blood pressure, pulse, and oxygen saturations were monitored continuously. The [id number] was introduced through the anus and advanced to 10 cm into the ileum. The colonoscopy was performed without difficulty. The patient tolerated the procedure well. The quality of the bowel preparation was good. Findings: The perianal and digital rectal examinations were normal. The terminal ileum appeared normal. A 7 mm polyp was found in the hepatic flexure. The polyp was sessile. The polyp was removed with a hot snare. Resection and retrieval were complete. To prevent bleeding after the polypectomy, a hemostatic clip was successfully placed. A 5 mm polyp was found in the sigmoid colon. The polyp was sessile. The polyp was removed with a hot snare. Resection and retrieval were complete. Three sessile polyps were found in the rectum. The polyps were 2 mm in size. These polyps were removed with a cold biopsy forceps. Resection and retrieval were complete. A small internal hemorrhoid was noted. The exam was otherwise without abnormality on direct and retroflexion views. Moderate Sedation: Moderate (conscious) sedation was administered by the endoscopy nurse and supervised by the endoscopist. The following parameters were monitored: oxygen saturation, heart rate, blood pressure, and response to care. Total physician intraservice time was 44 minutes. Impression: - Five polyps (removed, with clip placement at the hepatic flexure polyp site) and a small internal hemorrhoid, otherwise normal coon and terminal ileum. Recommendation: - Await pathology results. - Repeat colonoscopy for surveillance -- the timing of which will be based on the pathology results. - Return to see KAILA Covington as needed. Procedure Code(s): --- Professional --- 36042, Colonoscopy, flexible; with removal of tumor(s), polyp(s), or other lesion(s) by snare technique 11257, 59, Colonoscopy, flexible; with biopsy, single or multiple 95693, Moderate sedation; each additional 15 minutes intraservice time 71888, Moderate sedation; each additional 15 minutes intraservice time G0500, Moderate sedation services provided by the same physician or other qualified health child day care provider performing a gastrointestinal endoscopic service that sedation supports, requiring the presence of an independent trained observer to assist in the monitoring of the patient's level of consciousness and physiological status; initial 15 minutes of intra-service time; patient age 5 years or older (additional time may be reported with 78783, as appropriate) Diagnosis Code(s): --- Professional --- Z12.11, Encounter for screening for malignant neoplasm of colon K63.5, Polyp of colon K62.1, Rectal polyp CPT copyright 2019 [employer]. All rights reserved. The codes documented in this report are preliminary and upon lumber checker review may be revised to meet current compliance requirements. Yuri Finley, 03/23/2021 3:24:44 PM Number of Addenda: 0 Note Initiated On: 03/23/2021 2:18 PM Endoscopy Report us Harmony Bell PA-C ET GI PROCEDURE ORDERABLES F inal Result * HIV-1 p24 AND HIV-1/HIV-2 ANTIBODIES (02/04/2017 8:58 AM DELICATESSEN DEPARTMENT MANAGER) HIV-1 p24 Ag and HIV-1/HIV-2 Ab Nonreactive Nonreactive PN SOFT 02/04/2017 8:58 AM DELICATESSEN DEPARTMENT MANAGER 02/04/2017 12:01 PM DELICATESSEN DEPARTMENT MANAGER Narrative PN SOFT - 02/04/2017 2:25 PM DELICATESSEN DEPARTMENT MANAGER Performed at [address] [address] CLIA number [id number] Harmony Bell PA-C LAB_1 Final Result PN SOFT [address] [place] [phone] from Last 3 Months or Most Recently Relevant to Health Maintenance Insurance [facility] Care Teams Elevator Adjuster Relationship Specialty Start Date End Date Harmony Bell PA-C [address] [place] [address] PCP - General 09/15/15
--- OUTSIDE RECORDS SUMMARY | 2025-06-21 19:44 | XMS_ITS | Encounter Summary ---
Author Organization [employer] Address [address] [place] [address] Care Team Providers Care Refinery Pipeline Operator Name Role Phone Harmony Dalton PA-C Primary Care Provider [phone] Reason for Visit * Reason Comments Orders Needed Encounter Details Date Type Department Care Team (Late st Contact Info) Description 06/19/2025 Telephone [place] [address] Family Medicine [address] [place] [address] Harmony Dalton PA-C [address] [place] [address] Orders Needed Social History Tobacco Use Types Packs/Day Years [...] any time in the past 12 m [facility], were you homeless or living in a half-way (including now)? No 06/04/2025 Financial Resource Strain [...] on file documented as of this encounter Nursing Notes * Liam Devine - 06/21/2025 9:13 AM CDT Called and LVM with alice from harmony dalton. * Harmony Dalton PA-C - 06/21/2025 8:19 AM CDT Iron infusion has already been ordered. Harmony Mccord * Em Weber - 06/19/2025 11:43 AM CDT Orders - Specialty/Other What order is being requested? Iron infusion Relevant labs: N/a Why is this order being requested? Pt states PCP said had put in orders for an iron infusion When were you seen last for this concern? By whom? 06/14/25 PCP Additional comments (related to the above concern): Preferred communication method: Phone Call. Is it okay to leave a detailed message on your voicemail? Yes Is there anything else I can help you with today? documented in this encounter Plan of Treatment Upcoming Encounters Date Type Department Care Team (Late st Contact Info) Description 07/01/2025 10:30 AM CDT Appointment [facility] [address] [place] [address] 07/02/2025 9:00 AM CDT Appointment [place] [address] Obstetrics/Gynecology [id number] [place] [phone] [place] [address] [place] [address] documented as of this encounter Visit Diagnoses Not on filedocumented in this encounter Care Teams Refinery Pipeline Operator Relationship Specialty Start Date End Date Harmony Dalton, PAIramC [address] [place], [place] [id number] PCP - General 09/15/15 documented as of this encounter
--- OUTSIDE RECORDS SUMMARY | 2025-06-21 19:44 | XMS_ITS | Clinical Summary ---
Author Organization [facility] Address [address] [place] [address] Care Team Providers Care Cook Ice Cream Name Role Phone Unavailable Primary Care Provider Unavailabl e Social History Tobacco Use Types Packs/Day Years Used Date Smoking Tobacco: Never Assessed Adolescent Education Answer Date Record ed Getting School Help Needed Not on file 09/03 Comments Unknown Sex and Gender Information Value Date Recorded Sex Assigned at Not on file Legal Sex Female 3:43 AM CREDIT REFERENCE CLERK Gender Identity Not on file Sexual Orientation Not on file Plan of Treatment Not on file Insurance [employer] [place]
--- OUTSIDE RECORDS SUMMARY | 2025-06-21 19:44 | XMS_ITS | Encounter Summary ---
Author Organization [employer] Address [address] [place] [address] Care Team Providers Care Sifter Operator Name Role Phone Harmony Bell PA-C Primary Care Provider [phone] Encounter Details Date Type Department Care Team (Late st Contact Info) Description 06/14/2025 Results Follow-Up [facility] [address] Family Medicine [address] [place] [address] Harmony Bell PA-C [address] [place], [place] [phone] Social History Tobacco Use Types Packs/Day Years [...] any time in the past 12 m [place], were you homeless or living in a [...] Info) Description 07/01/2025 10:30 AM CDT Appointment [facility] [address] [place] [address] 07/02/2025 9:00 AM CDT Appointment [place] [address] Obstetrics/Gynecology [address] [place] [phone] [place] [address] [place] [address] documented as of this encounter Visit Diagnoses Not on filedocumented in this encounter Care Teams Sifter Operator Relationship Specialty Start Date End Date Harmony Bell, PAIramC [address] [place] [address] PCP - General 09/15/15 documented as of this encounter
--- OUTSIDE RECORDS SUMMARY | 2025-06-21 19:44 | XMS_ITS | Clinical Summary ---
Author Organization [facility] Address [facility] [place] [address] Care Team Providers Care Restaurant Front Manager Name Role Phone Harmony Bell Primary Care Provider [phone] Allergies Active Allergy Reactions Criticality Noted Date Comments Nsaids (Non-Steroidal Anti-Inflammatory Drug) Other - Describe In Comment Field 10/22/2009 Pt had gastric bypass surgery, should not take NSAIDS. Medications CYANOCOBALAMIN 1,000 MCG/ML INJECTION 10 ML inj SQ 1 ml 1 time monthly 0 Active FERROUS SULFATE 300 MG (60 MG ELEMENTAL IRON) TAB take 1 tablet (300 mg) by oral route 3 times per day 0 Active ORTHO TRI-CYCLEN LO ORAL take daily as prescribed 0 Active SYNTHROID 175 MCG TAB take 1 tablet (175 mcg) by oral route once daily 0 Active CALCIUM CITRATE/VITAMI N D3 (CALCIUM CITRATE + D ORAL) Take by mouth. Activ e MULTIVITAMIN ORAL Take by mouth. Activ e DOCOSAHEXANOIC ACID/EPA (FISH OIL ORAL) Take by mouth. Activ e EPINEPHrine (EPIPEN 2-CLARITAZ) 0.3 mg/0.3 mL (1:1,000) injectionIndic ations:Bee sting reaction Inject 0.3 mg intramuscular one time if needed for Allergic Reaction for up to 1 dose. 1 Each 0 4 Active Active Problems Problem Noted Date Diagnosed Date Chronic pain of both knees 12/13/2016 Chondromalacia, knee 12/13/2016 Bilateral severe patellorfemoral osteoarthritis 12/13/2016 Hypothyroid 01/10/2012 B12 deficiency 01/10/2012 Bariatric surgery status 01/10/2012 Social History Tobacco Use Types Packs/Day Years Used Date Smoking Tobacco: Never Smokeless Tobacco: Never Alcohol Use Standard Drinks/Week Comments Yes 0 (1 standard drink = 0.6 oz pur e alcohol) minimal Comments No Sex and Gender Information Value Date Recorded Sex Assigned at Not on file Legal Sex Female 7:03 AM IMPROVEMENT LEADER Gender Identity Not on file Sexual Orientation Not on file Occupation Industry Job Start Date Job End Date Not on file Not on file Not on file Not on file Obstetrics History Last Filed Vital Signs Vital Sign Reading Time Taken Comments Blood Pressure 132/90 06/30/2014 1:44 PM CDT Pulse 98 06/30/2014 1:44 PM CDT Temperature - - Respiratory Rate 18 06/30/2014 1:44 PM CDT Oxygen Saturation 98% 06/30/2014 1:44 PM CDT Inhaled Oxygen Concentration - - Weight 82.6 kg (182 lb 3.2 oz) 01/10/2012 10:00 AM IMPROVEMENT LEADER Height 174 cm (5' 8.5) 01/10/2012 10:00 AM IMPROVEMENT LEADER Body Mass Index 27.3 01/10/2012 10:00 AM IMPROVEMENT LEADER Plan of Treatment Health Maintenance Due Date Last Done Comments Tetanus booster 1983 Depression screening for age 12+ 1984 HIV for age 15-65 1987 BMI (ht and wt on same day) for age 18+ 1990 Hepatitis C screening for age 18-79 1990 Hepatitis B series for 19+ (1 of 3 - 19+ 3-dose series ) 1991 Pap test for age 21-65 1993 Colonoscopy through age 75 2017 Lipids for age 45-75 2017 Mammogram for age 45-75 2017 Pneumococcal series for age 50+ (1 of 1 - PCV) 022 Zoster (shingles) series for age 50+ (1 of 2) 05/28/20 22 COVID-19 vaccine series (1 - 2023- season) Influenza Vaccine (#1) [address] [place] [address] Care Teams Restaurant Front Manager Relationship Specialty [place] [address] [place] [address] PCP - General 12/08/07
--- OUTSIDE RECORDS SUMMARY | 2025-06-21 19:44 | XMS_ITS | Encounter Summary ---
Author Organization [employer] Address [address] [place] [address] Care Team Providers Care Airplane Woodworker Name Role Phone Harmony Bell PA-C Primary Care Provider Reason for Visit * Reason Comments Refill buPROPion (WELLBUTRI N XL) 150 MG 24 hour release tablet [Pharmacy Med Name: buPROPion HCl ER (XL) Oral Tablet Extended Release 24 Hour 150 MG]; levothyroxine (SYNTHROID) 175 MCG tablet [Pharmacy Med Name: Levothyroxine Sodium Oral Tablet 175 MCG] Encounter Details Date Type Department Care Team (Late st Contact Info) Description 04/25/2025 Refill [place] [address] Family Medicine [address] [place] [phone] Harmony Bell PA-C [address] [place], [place] [phone] Refill (buPROPion (WELLBUTRIN XL) 150 MG 24 hour release tablet [Pharmacy Med Name: buPROPion HCl ER (XL) Oral Tablet Extended Release 24 Hour 150 MG]; levothyroxine (SYNTHROID) 175 MCG tablet [Pharmacy Med Name: Levothyroxine Sodium Oral Tablet 175 MCG]) Social History Tobacco Use Types Packs/Day Years Used Date Smoking Tobacco: Never Smokeless Tobacco: Never Alcohol Use Standard Drinks/Week Comments Not Currently 0 (1 standard drink = 0.6 oz pur e alcohol) Limited PHQ-2 Answer Date Recorded PHQ-2 Score 0 09/28/2023 Financial Resource Strain Answer Date R ecorded [...] as of this encounter Nursing Notes * Nilson Segura RN - 04/29/2025 9:44 AM CDT Short supply only to last until required appointment. * Quang France [facility]comm - 04/25/2025 9:18 AM CDT buPROPion (WELLBUTRIN XL) 150 MG 24 hour release tablet [Pharmacy Med Name: buPROPion HCl ER (XL) Oral Tablet Extended Release 24 Hour 150 MG] Medication started: 06/25/2019 Last ordered by HARMONY BELL R: 10/12/2024 (195 days ago) QTY: 90, Refills: 1, Sig: take one tablet by mouth in the morning (unchanged) -> An office visit is overdue (performed over 13 months ago, required every 12 months). Last qualifying visit: 03/17/2024 (with HARMONY BELL) Next scheduled visit: 06/04/2025 (with HARMONY BELL) Age: 54 [employer] Embedded Refills, Reference: [id number], 04/25/2025 9:18:06 AM John REED: PN Refill [facility] [[id number]] ([id number]) levothyroxine (SYNTHROID) 175 MCG tablet [Pharmacy Med Name: Levothyroxine Sodium Oral Tablet 175 MCG] Medication started: 06/25/2019 Last ordered by HARMONY BELL: 01/27/2025 (88 days ago) QTY: 102, Refills: 0, Sig: take one tablet by mouth on and 2 tablets on tuesday (changed but equivalent) -> An office visit is overdue (performed over 13 months ago, required every 12 months). -> TSH is abnormal (7 mIU/L lies outside 0.2 mIU/L - 4.5 mIU/L) Last qualifying visit: 03/17/2024 (with HARMONY BELL) Next scheduled visit: 06/04/2025 (with HARMONY BELL) TSH: 7 mIU/L on 11/20/2024 [employer] Embedded Refills, Reference: [id number], 04/25/2025 9:18:06 AM John REED: PN Refill [facility] [[id number]] ([id number]) * Quang France - 04/25/2025 9:18 AM CDT The following lab order(s) may be associated with the following Patient Result Comment (Entered by Raquel Pierre PA-C at 11/22/2024 10:47 AM): TSH, SENSITIVE (WITH REFLEX) Harmony Love is out of office so I am helping with her results. Your TSH has further increased despite bumping your levothyroxine dose last November. I would like you to take 2 full tablets on Tuesday and Tuesday and 1 tablet all other days of the week. Your cholesterol has increased quite a bit since November. Are you still taking the rosuvastatin daily? You are due for an annual visit so try to schedule in December/January and labs can be rechecked at that time.Raquel Pierre PA-C documented in this encounter Plan of Treatment Upcoming Encounters Date Type Department Care Team (Late st Contact Info) Description 07/01/2025 10:30 AM CDT Appointment [facility] [address] [place] [address] 07/02/2025 9:00 AM CDT Appointment [place] [address] Obstetrics/Gynecology [address] [place] [address] [place] [address] [place] [address] documented as of this encounter Visit Diagnoses Diagnosis Perimenopause Symptomatic menopausal or female climacteric states 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
--- OUTSIDE RECORDS SUMMARY | 2025-06-21 19:44 | XMS_ITS | Encounter Summary ---
Author Organization [facility] Address [address] [place] [address] Care Team Providers Care Thermodynamics Teacher Name Role Phone Harmony Bell PA-C Primary Care Provider [phone] Encounter Details Date Type Department Care Team (Late st Contact Info) Description 02/24/2017 [facility] [address] [place] [phone] Rohit Li MD [facility] OBGYN [address] [place] [address] [address] Social History Tobacco Use Types Packs/Day Years Used Date Smoking Tobacco: Never Assessed Comments Unknown Sex and Gender Information Value Date Recorded Sex Assigned at Not on file Legal Sex Female 3: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 1ST 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 TEACHER Gender Identity Not on file Sexual Orientation Not on file documented as of this encounter Miscellaneous Notes * Op Note - Rohit Li MD - 02/24/2017 12:11 PM CDT [facility] Operative Note Patient: Alice Quintero : 1970 Date of Service: 02/24/2017 Pre-operative diagnosis: - Abnormal uterine bleeding - Endometrial mass Post-operative diagnosis: - Same - Endometrial polyp - IUD in place Procedure: - Operative hysteroscopy, polypectomy, dilation and curettage, insertion of IUD Surgeon: Rohit Li MD Anesthesia: General Antibiotics: none EBL: 10 mL Urine: 100 mL clear Specimens: endometrial polyp and curettings Complications: none Findings: EUA: normal sized anteverted uterus, normal cervix, vagina. Hysteroscopy: endometrial polyp arising from just proximal to internal cervical os, remainder of endometrial cavity unremarkable,both ostia visualized. Uterus sounded to 8.5 cm Indications: Alice Quintero is a 46 year old female who developed abnormal uterine bleeding with heavy prolonged periods. Pelvic US showed endometrial mass. Decision made to proceed with hysteroscopy for removal of fibroid or polyp, and insertion of Lng IUD. Discussed risks, benefits, and alternatives to the procedure including risk of infection, bleeding, damage to local organs, blood clots,perforation. The patient's questions were answered, understanding confirmed, and the patient signedwritten informed consent. Technique: The patient was taken to the operating room and placed on the table in dorsal lithotomy position with legs in yellow-fin stirrups. General anesthesia was administered. An EUA was performed. The patient was prepped and draped in the usual sterile fashion. A time-out was performed. The bladder was drained with a straight catheter. The anterior lip of the cervix was infiltrated with 0.25% bupivacaine and a single-toothed tenaculum placed. A paracervical block of same local anesthetic was placed at 4 and 8 o'clock of the cervicovaginal junction. The cervical os was carefully dilated to 7 mm with sequential dilators. The hysteroscope was placedthrough the cervix into the uterine cavity. Examination of the uterine cavity demonstrated above findings. Pictures were taken. The reciprocating hysteroscopic morcellator was used to remove the poylp with good success. The hysteroscope apparatus was removed and total of 100 mL fluid deficit of normal saline noted. A sharp curet was used to scrape the uterus which was gritty on all aspects and with moderate return of tissue. The curetings were sent to pathology with morcellation contents. The uterus was sounded and the Mirena IUD placed according to briar wood sorter directions. The strings were cut to 2 cm outside the cervical os. The tenaculum was removed from the cervix and good hemostasis was noted. The speculum was removed from the vagina. Final vaginal exam yielded no foreign objects. Instrument, needle, and sponge counts were correct times 2. The patient was transferred to the PACU in stable condition. Rohit Li MD documented in this encounter Plan of Treatment Not on file documented as of this encounter Visit Diagnoses Not on filedocumented in this encounter Care Teams Thermodynamics Teacher Relationship Specialty Start Date End Date Harmony Bell PA-C PCP - General Physician Tracer Powder Blender 01/31/15 01/31/23 documented as of this encounter
--- OUTSIDE RECORDS SUMMARY | 2025-06-21 19:44 | XMS_ITS | Clinical Summary ---
Author Organization [facility] Address [address] [place] [id number] Care Team Providers Care Lead Handler Name Role Phone Unavailable Primary Care Provider Unavailabl e Source Comments Patient records contain information from all sites at [facility]. For routine questions regarding patient records, call [phone] during business hours, M-F 8:00 AM - 5:00 PM Central Time. Record requests for emergency care only can be directed to [phone] at any time.[facility] Allergies Active Allergy Reactions Criticality Noted Date Comments Adhesive Rash 08/19/2020 Bacitracin Rash 02/13/2003 PN: LW Reaction: Rash, Generalized Medications multivitamin (MULTIPLE VITAMINS ORAL) Take by mouth daily. Active buPROPion XL (Wellbutrin XL) 150 mg 24 hr tablet Take 1 tablet by mouth every morning. 4 Active levonorgestreL (Mirena) 21 mcg/24hr (up to 8 yrs) 52 mg IUD 1 each by intrauterine route once. Active levothyroxine 175 mcg tablet Take 175 mcg by mouth daily before morning meal. 4 Active propranoloL (InderaL) 40 mg tablet Administer 40 mg via gastric tube every 6 (six) hours. 2 Active rosuvastatin (Crestor) 5 mg tablet Take 1 tablet by mouth at bedtime. 5 Active Social History Tobacco Use Types Packs/Day Years Used Date Smoking Tobacco: Never Smokeless Tobacco: Never Alcohol Use Standard Drinks/Week Comments Never 0 (1 standard drink = 0.6 oz pur e alcohol) [facility] Utilities Answer Date Recorded In the past 12 months has e [place], gas, oil, or water [employer] threatened to shut off services in your home? No 01/23/2025 Hunger Vital Sign Answer Date Recorded Within the past 12 months, y ou worried that your food would run out before you got the money to buy more. Never true 01/23/20 25 Within the past 12 months, t he food you bought just didn't last and you didn't have money to get more. Never true 01/23/2025 PRAPARE - Transportation Answer Date Re corded In the past 12 months, has l ack of transportation kept you from medical appointments or from getting medications? No 12/30 In the past 12 months, has l ack of transportation kept you from meetings, work, or from getting things needed for daily living? No 01/23/2025 Housing Stability Answer Date Recorded What is your living situation today? 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 DIRECTOR Plan of Treatment Health Maintenance Due Date Last Done Comments CT Colonography 1972 Cologuard 1972 Colonoscopy 1972 Colorectal Cancer Screening 1972 FIT 1972 Fasting Glucose for Diabetes Screening 1972 HIV Screening 1972 Hepatitis C Screening 1972 Lipid (Cholesterol) Screening 1972 Mammogram 1972 Thyroid Stimulating Hormone (TSH) test for thyroid function 1972 Hepatitis B Vaccines (1 of 3 - 19+ 3-dose series) 1991 Pneumococcal vaccine (50+ years) (1 of 1 - PCV) 2022 COVID-19 Vaccine (2023- season) 2024 09/28/2023, 06/03/2022, 10/30/2021, Additional history exists Depression Screening (Annual PHQ-2) 11/28/2024 Influenza Vaccine (#1) 2025 , 10/23/2019, 10/12/2016, Additional history exists Cervical/Vaginal Cancer Screening 09/28/2026 09/28/2023 DTaP,Tdap,and Td Vaccines (3 - Td or Tdap) 06/03/2032 06/03/2022, 01/17/2013, 01/07/2000 Zoster Vaccines Completed 09/28/2023, 06/03/2022 IPV Vaccines Aged Out No longer eligi ble based on patient's age to complete this topic Medical Devices Implanted Type Area Creative Art Therapist Device Identifier Shelf Expiration Date Model / Serial / Lot Intrauterine Device Intrauterine Device Uterus Insurance [facility]
[2025-06-21 19:46] VITALS: BP 134/87; PULSE 66; RESP 16; TEMP 36.6; O2SAT 98; BMI 22.2
--- NOTE | 2025-06-21 20:46 | ED.ARRPALP ---
HPI - Arrhythmia/Palpitations General Time Seen by Provider: 20:46 Date Seen: 06/21/25 Chief Complaint: Arrhythmia/Palpitations Stated Complaint: Low Iron, heart palpitations Time Seen by Provider: 06/21/25 20:46 Source: patient History of Present Illness HPI narrative: Alice is a 55-year-old female with no significant past medical history who presents the emergency department for evaluation of palpitations. Patient states that she had outpatient labs done approximately 10 days ago and was told that her iron was low. Patient recently started iron supplementation approximately 5 days ago, and has an iron infusion scheduled for July 01. Patient reports that she was feeling tired, fatigued, but on Tuesday when she was playing pickleball she had an episode in which she became very sweaty, started seeing stars, felt dizzy, and felt her heart fluttering. Patient states episode resolved and did not have any other symptoms until today. Patient reports similar episode today when she was playing pickleball this morning when she felt a heaviness in her chest, some shortness of breath, dizziness, fluttering, and bilateral hand paresthesias. Patient states that this afternoon she switched to a liquid iron supplementation, and came in for further evaluation. Patient denies any fever, chills, cough or cold-like symptoms. Currently denies any chest pain, shortness of breath, abdominal pain, nausea, vomiting, diarrhea. Patient denies any lower extremity edema or calf tenderness. Patient is very active and exercises frequently. Patient with no other complaints. Related Data Home Medications ?Medication ?Instructions ?Recorded ?Confirmed bupropion HCl 150 mg 24 hr tablet, 150 mg PO DAILY 06/21/25 06/21/25 extended release levothyroxine 175 mcg tablet PO 06/21/25 rosuvastatin 5 mg tablet 5 mg PO DAILY 06/21/25 06/21/25 Allergies Allergy/AdvReac Type Severity Reaction Status Date / Time bacitracin Allergy Verified 06/21/25 19:52 Review of Systems Narrative: Past medical history, past surgical history, medications, allergies, family history, and social history were reviewed with the patient. No additional pertinent items. A medically appropriate review of systems was performed with pertinent positives and negatives noted in HPI, all other systems negative. PFSH PFS Social History Smoking Status: Never smoker Do you use any of these nicotine containing products: None Second hand tobacco smoke exposure: No How often do you have a drink containing alcohol: never How often do you have six or more drinks on one occasion: Never AUDIT-C Alcohol total score: 0 Non-prescribed substance use: denies use service: No Exam Narrative: Exam Narrative: General: Afebrile, no acute distress HEENT: Normocephalic, atraumatic, conjunctiva normal. MMM Neck: non-tender, supple Cardio: regular rate. regular rhythm Resp: Normal work of breathing, no respiratory distress, lungs clear bilaterally, no wheezing, rhonchi, rales Chest/Back: no visual signs of trauma, no midline tenderness, no CVA tenderness Abdomen: soft, non distension, no tenderness, no peritoneal signs Neuro: alert and fully oriented. CN II-XII grossly intact. Grossly normal strength and sensation in all extremities. MSK: no deformities. Normal range of motion Integumentary/Skin: no rash visualized, normal color Psych: normal affect, normal behavior Const: Vital Signs, click to edit/add: Vital Signs - 24 hr 06/21/25 19:46 06/21/25 21:51 06/21/25 22:00 Temperature 98 F Pulse Rate [Pulse Oximeter] 66 Respiratory Rate 16 19 14 Blood Pressure [Ri ght Upper Arm] 134/87 Pulse Oximetry 98 97 99 Oxygen Delivery Me thod Room Air 06/21/25 23:39 Temperature Pulse Rate [Pulse Oximeter] 62 Respiratory Rate 16 Blood Pressure [Ri ght Upper Arm] 116/86 Pulse Oximetry Oxygen Delivery Me thod Course Vital Signs Vital signs: Initial Vital Signs Temperature 98 F 06/21/25 19:46 Temperature Source Temporal Artery Scan 06/21/25 19:46 Pulse Rate 66 06/21/25 19:46 Respiratory Rate 16 06/21/25 19:46 Blood Pressure 134/87 06/21/25 19:46 Blood Pressure Mean 102 06/21/25 19:46 Blood Pressure Position Sitting 06/21/25 19:46 Pulse Oximetry 98 06/21/25 19:46 Oxygen Delivery Method Room Air 06/21/25 19:46 Vital Signs Temperature 98 F 06/21/25 19:46 Pulse Rate 66 06/21/25 19:46 Respiratory Rate 16 06/21/25 19:46 Blood Pressure 134/87 06/21/25 19:46 Pulse Oximetry 98 06/21/25 19:46 Oxygen Delivery Method Room Air 06/21/25 19:46 Temperature 98 F 06/21/25 19:46 Pulse Rate 62 06/21/25 23:39 Respiratory Rate 16 06/21/25 23:39 Blood Pressure 116/86 06/21/25 23:39 Pulse Oximetry 99 06/21/25 22:00 Oxygen Delivery Method Room Air 06/21/25 19:46 MDM - Arrhythmia/Palpitations MDM Narrative Medical decision making narrative: Alice is a 55-year-old female with no significant past medical history who presents the emergency department for evaluation of palpitations. Upon arrival patient is non toxic appearing, afebrile, no distress. Patient hemodynamically stable, vital signs within normal limits. Differential diagnosis includes but is not limited to ACS versus arrhythmia versus dehydration versus metabolic or electrolyte abnormality versus anemia among others. I reviewed EKG which demonstrates normal sinus rhythm with a ventricular rate of 63 beats per minute with no acute ischemic change, QTC 427, no prior EKG to compare to. Patient was treated with 1 L IV fluid bolus. Comprehensive labs remarkable for no leukocytosis - wbc 4.6, hemoglobin 11.7, no acute metabolic or electrolyte abnormality, no transaminitis, initial high sensitive troponin negative, TSH 4.4, free T4 1.64. On re-evaluation patient resting comfortably, no distress. Patient remains asymptomatic, currently denies any symptoms. I discussed results with patient. No evidence of arrhythmia in the emergency department, no acute metabolic electrolyte abnormality, no evidence of acute infection. Patient's hemoglobin of 11.7. Discussed with patient recommend continue outpatient management and schedule for iron infusions. Recommend oral hydration, avoid physical activities especially in extreme heat, and close outpatient follow-up with primary care provider. If ongoing symptoms would consider Holter monitor/zio patch for further evaluation. The patient understands and agrees with the plan and agrees with discharge home. Return precautions discussed. Medical Records Attestation: I reviewed the patient's medical records. Lab Data Attestation: I reviewed the patient's lab results. Labs: Lab Results 06/21/25 Range/Units 21:32 WBC 4.61 (4.50-11.00) K/uL RBC 3.96 L (4.00-5.20) m/uL Hgb 11.7 L (12.0-16.0) gm/dL Hct 36.4 (33.0-51.0) % MCV 92 (80-100) fL MCH 30 (26-34) pg MCHC 32 (32-36) gm/dL RDW Coeff of Keiry 14.1 (11.5-15.5) % Plt Count 241 (140-440) K/uL Neut % (Auto) 29.8 L (42.0-72.0) % Lymph % (Auto) 54.2 H (20-44) % Benson % (Auto) 11.7 H (0.0-11.0) % Eos % (Auto) 3.5 (0.0-7.0) % Baso % (Auto) 0.4 (0.0-3.0) % Neut # (Auto) 1.40 L (1.7-7.0) K/uL Lymph # (Auto) 2.50 (0.90-2.90) K/uL Benson # (Auto) 0.50 (0.00-0.90) K/UL Eos # (Auto) 0.16 (0.00-0.50) K/uL Baso # (Auto) 0.02 (0.00-0.30) K/uL Abs Immat Gran (auto) 0.02 (0.00-0.30) K/uL Imm/Tot Granulo (auto) 0.4 % Sodium 136 (135-149) mmol/L Potassium 4.1 (3.6-5.1) mmol/L Chloride 107 (96-114) mmol/L Carbon Dioxide 25 (20-32) mmol/L Anion Gap 4 L (7-15) mEq/L BUN 10 (7-30) mg/dL Creatinine 0.7 (0.5-1.5) mg/dL Estimated Creat Clear 97.13 Estimated GFR 103 ml/min Glucose 93 (60-115) mg/dL Calcium 9.2 (8.4-10.6) mg/dL Magnesium 1.9 (1.5-2.6) mg/dL Total Bilirubin 0.6 (0.1-1.5) mg/dL AST 39 H (12-35) U/L ALT 25 (4-35) U/L Alkaline Phosphatase 59 (40-150) U/L Troponin I < 0.01 (0.01-0.04) ng/mL Total Protein 7.2 (6.0-8.3) g/dL Albumin 4.3 (3.3-5.0) g/dL TSH 4.400 H (0.270-4.200) uIU/mL Free T4 1.64 (0.70-1.85) ng/dL Discharge Plan Discharge Clinical Impression: Palpitations Patient Disposition: Home, Self-Care Condition: Stable Additional Instructions: Please follow-up with the primary care provider in the next 3-5 days for further evaluation and follow-up. Please call to schedule appointment. If you continue to have symptoms we may recommend further testing with a Holter monitor/zio patch (outpatient heart monitor). Please rest, drink plenty of fluids. Please return to the emergency department if you develop any worsening symptoms. It is a pleasure taking care of you today. Prescriptions: No Action levothyroxine 175 mcg tablet PO rosuvastatin 5 mg tablet 5 mg PO DAILY bupropion HCl 150 mg tablet extended release 24 hr 150 mg PO DAILY Follow Up/Referrals: Harmony Bell PA [Primary Care Provider, Family Practice] Stand Alone Forms: [employer] AG[employer] Info Instructions
[2025-06-21 21:51] VITALS: RESP 19; O2SAT 97
[2025-06-21 22:00] VITALS: RESP 14; O2SAT 99
[2025-06-21 22:07] LABS: Hematocrit 36.4 % (33.0-51.0); Hemoglobin* 11.7 gm/dL (12.0-16.0); Immature Granulocytes Abs Auto 0.02 K/uL (0.00-0.30); Immature Granulocytes Pct Auto 0.4 %; Lymphocytes Absolute Auto 2.50 K/uL (0.90-2.90); Mean Corpuscular HGB Conc 32 gm/dL (32-36); Mean Corpuscular Hemoglobin 30 pg (26-34); Mean Corpuscular Volume 92 fL (80-100); RDW Coefficient of Variation % 14.1 % (11.5-15.5); Red Blood Count 3.96 m/uL (4.00-5.20); White Blood Count* 4.61 K/uL (4.50-11.00)
[2025-06-21 22:12] LABS: Slide Review Reflex No
[2025-06-21 23:09] LABS: Anion Gap 4 mEq/L (7-15); Blood Urea Nitrogen* 10 mg/dL (7-30); Calcium* 9.2 mg/dL (8.4-10.6); Carbon Dioxide* 25 mmol/L (20-32); Chloride* 107 mmol/L (96-114); Creatinine* 0.7 mg/dL (0.5-1.5); Est. Creatinine Clearance* 97.13; Estimated Glomerular Filt Rate 103 ml/min; Glucose* 93 mg/dL (60-115); Potassium* 4.1 mmol/L (3.6-5.1); Sodium* 136 mmol/L (135-149); Total Protein* 7.2 g/dL (6.0-8.3)
[2025-06-21 23:10] LABS: Alanine Aminotransferase* 25 U/L (4-35); Albumin* 4.3 g/dL (3.3-5.0); Alkaline Phosphatase* 59 U/L (40-150); Aspartate Amino Transferase* 39 U/L (12-35); Bilirubin Total* 0.6 mg/dL (0.1-1.5)
[2025-06-21 23:28] LABS: TSH With Reflex to FT4* 4.400 uIU/mL (0.270-4.200)
[2025-06-21 23:39] VITALS: BP 116/86; PULSE 62; RESP 16
[2025-06-22 00:10] LABS: Free T4 Free Thyroxine* 1.64 ng/dL (0.70-1.85)
== END 2025-06-21 23:41 | disposition home or self-care (01) ==
PROVIDERS: Emergency Provider Emergency Medicine; PCP Physician Assistant
DX: R00.2 Palpitations (principal)
CPT/HCPCS: 36415; 80050; 80053; 83735; 84439; 84443; 84484; 85025; 93005; 99284; 99285